=== PATIENT | female | born 1940 | race Caucasian/White ===

== ENCOUNTER 2017-08-07 19:04 | Observation (INO) | payer MEDICARE ==
[2017-08-07] MEDS ORDERED: Aspirin Low Dose CHEW TAB* 81 MG PO ONE (19:41)
[2017-08-07] MEDS ORDERED: NS 0.9% 1000 ML* 1,000 ML IV ONE (19:41)
--- NOTE | 2017-08-07 20:12 | RAD ---
INDICATION: Palpitations. COMPARISON: Comparison is made with a prior study from August 28, 2014. TECHNIQUE: A portable view of the chest was obtained. FINDINGS: Cardiac and mediastinal contours appear to be within normal limits. The lungs are slightly hyperinflated and clear. No pleural effusion is seen. IMPRESSION: NO EVIDENCE FOR ACUTE DISEASE.
[2017-08-07] MEDS: Metoprolol Tartrate IV* 1 MG/ML 5 ML VIAL IV ONE ×2 (20:15→20:32)
[2017-08-07 20:57] LABS: Hematocrit 37 % (35-47); Hemoglobin 12.6 g/dl (12.0-16.0); Mean Corpuscular HGB Conc 34 g/dl (31-36); Mean Corpuscular Hemoglobin 31 pg (27-31); Mean Corpuscular Volume 93 fL (80-97); Mean Platelet Volume 7 um3 (7.4-10.4); Red Blood Count 4.02 10^6/ul (4.0-5.4); Red Cell Distribution Width 14 % (10.5-15); White Blood Count 6.9 10^3/ul (3.5-10.8)
[2017-08-07 21:12] LABS: ALT 17 U/L (7-52); Albumin 3.9 g/dL (3.2-5.2); Alkaline Phosphatase 46 U/L (34-104); BUN/Creatinine Ratio 28.8 (8-20); Blood Urea Nitrogen 23 mg/dL (6-24); CO2 Carbon Dioxide 28 mmol/L (22-32); Calcium 9.2 mg/dL (8.6-10.3); Chloride 106 mmol/L (101-111); EGFR Non-African American 69.2 (>60); Globulin 2.8 g/dL (2-4); Glucose 89 mg/dL (70-100); Sodium 138 mmol/L (133-145); Total Protein 6.7 g/dL (6.4-8.9)
[2017-08-07 21:13] LABS: Troponin I 0.01 ng/mL (<0.04)
[2017-08-07] MEDS ORDERED: Acetaminophen TAB* 325 MG PO PRN (21:30)
[2017-08-07 21:31] LABS: Anion Gap 4 mmol/L (2-11)
[2017-08-07] MEDS ORDERED: CMCS: Melatonin (NF) 3 MG TAB PO PRN (21:31)
[2017-08-07] MEDS ORDERED: Ondansetron INJ* 2 MG/ML VIAL IV PRN (21:31)
[2017-08-07 21:44] LABS: TSH (Thyroid Stimulating Horm) 3.88 mcIU/mL (0.34-5.60)
[2017-08-07] MEDS ORDERED: NS 0.9% 1000 ML* 1,000 ML IV SCH ×2 (21:45→22:30)
[2017-08-07] MEDS ORDERED: Ibuprofen TAB* 400 MG PO PRN (22:44)
[2017-08-07] MEDS ORDERED: tiZANidine TAB* 2 MG PO PRN (22:44)
[2017-08-07] MEDS ORDERED: Zolpidem TAB* 5 MG PO PRN (22:44)
[2017-08-07] MEDS ORDERED: Enoxaparin(*) 40 MG/0.4 ML SYR SUBCUT SCH (23:00)
[2017-08-07 23:58] LABS: Urine Bacteria Absent (Absent); Urine Bilirubin Negative (Negative); Urine Glucose Negative (Negative); Urine Nitrite Negative (Negative)
[2017-08-07] MEDS: Atorvastatin* 10 MG TAB PO SCH (23:59)
[2017-08-08] MEDS: Atorvastatin* 10 MG TAB PO SCH (00:09)
[2017-08-08] MEDS: Cyanocobalamin TAB* 500 MCG PO SCH ×2 (00:15→08:29)
--- NOTE | 2017-08-08 00:15 | HP ---
CC: Dr. Avilez; Dr. Cevallos * HISTORY AND PHYSICAL: DATE OF ADMISSION: 08/07/17 PRIMARY CARE PHYSICIAN: Dr. Eloina Avilez. STAIR BUILDER: Dr. Cevallos. ATTENDING PHYSICIAN: Dennis Velazco MD * (DICTATED BY HEATHER NUNN NP) CHIEF COMPLAINT: Palpitations. HISTORY OF PRESENT ILLNESS: This patient is a 77-year-old female with past medical history significant for coronary artery disease; SVT, status post ablation; hyperlipidemia; hypothyroidism, who presents to the emergency room today with complaint of palpitations. The patient spent the weekend in [facility] with her children. She took the [employer] bus back this afternoon and then went urgently to the bathroom where she had an episode of watery diarrhea and subsequently felt very weak. The patient states yesterday, she also felt very weak and too tired to eat. She had difficulty sleeping the night prior and took an Ambien. After the episode of watery diarrhea this afternoon, she went home and had a toast, egg, and some tea. While she was at home, she could feel her heart was racing. She denied any chest pain or shortness of breath. She felt palpitations. She took her vital signs and stated that her blood pressure was 103/70 and her heart rate was 133. She took it shortly thereafter and that came down to 121. She phoned her die drawing checker office and was directed by the die drawing checker store loss prevention manager to come to the emergency room for further evaluation. In the emergency room, initially in triage, her heart rate was 132. When she was placed on the monitor, her heart rate came down and it was in the 70s. Currently, she is in sinus arrhythmia. She was given a liter of fluid and hospitalists were asked to evaluate this patient for admission. PAST MEDICAL HISTORY: Rheumatoid arthritis, coronary artery disease, SVT ablation, hypothyroidism, hyperlipidemia, GERD, anxiety, and reactive airway disease. PAST SURGICAL HISTORY: Hysterectomy, cataract surgery, right knee arthroscopy, open reduction and internal fixation of her left hip in August 2014. HOME MEDICATIONS: Include: 1. Zantac 150 mg oral daily. 2. Ambien half to one 5 to 10 mg oral at bedtime as needed. 3. Magnesium 500 mg oral daily. 4. Advil 400 mg oral daily as needed. 5. Vitamin B12 500 mcg oral daily. 6. Extra-Strength Tylenol 1 to 2 tablets oral every 4 hours as needed. 7. Tizanidine 4 mg oral daily as needed. 8. [place]-3 fatty acids 1 tablet oral daily. 9. Co-enzyme Q10 one tablet oral daily. 10. Vitamin D two tablets oral daily. 11. Doxycycline 40 mg oral daily. 12. Fluticasone 1 spray both nares daily. 13. Singulair 1 tablet 10 mg oral daily. 14. Levocetirizine 1 tablet oral daily. 15. Leucovorin tablet, 1 tablet oral weekly. 16. Enbrel 50 mg subcu weekly. 17. Zoloft 25 mg oral daily. 18. Methotrexate 5, 2.5 mg tablets oral weekly. 19. Potassium chloride 20 mEq oral daily. 20. Synthroid 50 mcg oral daily. 21. Folic acid 1 mg oral daily. 22. Lipitor 10 mg oral at bedtime. 23. Aspirin 81 mg oral daily. ALLERGIES: PENICILLIN, SULFA, BACTRIM, CONTRAST DYE, BEE STINGS. FAMILY HISTORY: Reviewed and noncontributory. SOCIAL HISTORY: The patient denies any tobacco, alcohol, or drug use. She is retired. Her , George Anaya, would be the surrogate decision maker in the event the patient cannot make decisions for herself. They have 2 children. REVIEW OF SYSTEMS: I performed a 14-point review of systems. All the pertinent positives and negatives are mentioned in the history of present illness. The remaining review of systems is negative. PHYSICAL EXAMINATION GENERAL APPEARANCE: The patient is alert, pleasant, and appeared to be in no apparent distress. VITAL SIGNS: Temperature 97.9, heart rate 82, respiratory rate 20, oxygen saturation 96% on room air, blood pressure 118/59. HEENT: Normocephalic/atraumatic. Pupils equal, round, and reactive to light. Extraocular movements were intact. NECK: Neck was supple. There is no lymphadenopathy noted. RESPIRATORY: There was no accessory muscle use. Lungs are clear to auscultation. CARDIAC: S1, S2 were crisp. There were no murmurs, rubs, or gallops heard. Rhythm was irregular. ABDOMEN: Soft, nontender, nondistended. There are bowel sounds x4. MUSCULOSKELETAL: There is no clubbing or cyanosis noted. The patient exhibited equal strength in all extremities. NEURO: Cranial nerves II through XII intact. The patient moves all extremities. Lower extremities were intact to light touch. PSYCH: The patient is alert and oriented x3. SKIN: There were no rashes or abnormalities seen. LABORATORY DATA: Sodium 138, potassium 4.2, chloride 106, CO2 28, BUN 23, creatinine 0.8, glucose 89, lactic acid 1.1. Bilirubin 0.3, AST 20, ALT 17. Troponin 0.01. BNP 85. Albumin 3.9. TSH 3.88, free T4 6.5. White blood cell count 6.9, hemoglobin 12.6, hematocrit 37, platelet count 637. INR 0.94. IMPRESSION AND PLAN: This is a 77-year-old female with past medical history significant of supraventricular tachycardia and coronary artery disease as well as hyperlipidemia, gastroesophageal reflux disease, and anxiety, who presents to the emergency room with episode of palpitations and elevated heart rate that were self- limiting. The patient will be placed on observation for palpitations : 1. Palpitations, possible supraventricular tachycardia. The patient will be placed on telemetry overnight and will have a repeat troponin in the morning. Her beta yue will continue. Magnesium is being added on emergency room labs to ensure that it is normal. Her daily potassium and magnesium supplements will continue. If the patient has any episode of arrhythmia or supraventricular tachycardia, overnight medications can be adjusted and cardiology can be consulted. 2. Hypothyroidism. TSH and free T3 and T4 are within normal limits. Continue Synthroid. 3. Dehydration. The patient was given a liter of fluid in the ER and will be given an additional liter; this is likely the cause of her intermittent palpitations. 4. Hyperlipidemia. Lipitor will continue. 5. Fluids, electrolytes, nutrition. The patient will have a heart healthy diet with no caffeine. 6. DVT prophylaxis. She is at moderate risk. We will give Lovenox. 7. Codes status is full. TIME SPENT: Time for this admission was 50 minutes, and 25 minutes was spent with the patient discussing medications, past medical history, event leading up to her arrival in the emergency room. Reviewed by HEATHER NUNN NP 08/08/2017 1800 [id number]/CPS #: [id number] WILDA
--- NOTE | 2017-08-08 02:36 | ED ---
Shawna Alvarez Nilda, scribed for Freddie Smith MD on 08/07/17 at 1942 . HPI Cardiac - HPI Summary HPI Summary: This patient is a 77 year old F presenting to [facility] accompanied by with a chief complaint of palpitations s/p returning from [facility] trip earlier today. The patient rates the pain 0/10 in severity. Symptoms aggravated by nothing and alleviated by Tylenol. Patient reports diarrhea, elevated heartbeat, elevated blood pressure, and SOB. Patient denies CP, headache, back pain, and nausea. PMHx includes SVT. - History of Current Complaint Chief Complaint: EDChestPainROMI Stated Complaint: PALPITATIONS/HIGH BLOOD PRESSURE Time Seen by Provider: 08/07/17 19:27 Hx Obtained From: Patient Onset/Duration: Started Hours Ago, Still Present Timing: Constant Current Severity: Mild Pain Intensity: 0 Pain Scale Used: 0-10 Numeric Character: Fast, Irregular Aggravating Factor(s): Nothing Alleviating Factor(s): OTC Meds - tylenol Associated Signs and Symptoms: Positive: Other: - diarrhea, tachycardia, elevated blood pressure, and SOB. Patient denies CP, headache, back pain, and nausea. - Allergy/Home Medications Allergies/Adverse Reactions: Allergies Allergy/AdvReac Type Severity Reaction Status Date / Time Penicillins Allergy Unknown Rash Verified 08/07/17 19:15 Sulfa Drugs Allergy Unknown Rash Verified 08/07/17 19:15 Sulfamethoxazole Allergy Unknown Rash Verified 08/07/17 19:15 w/Trimethoprim [From Bactrim] Iodinated Contrast Media AdvReac Unknown Unknown Verified 08/07/17 19:15 [CONTRAST DYE] Reaction Details bee sting Allergy Severe Anaphylatic Uncoded 08/07/17 19:15 Shock PMH/Surg Hx/FS Hx/Imm Hx Endocrine/Hematology History: Reports: Hx Thyroid Disease, Hx Anemia - MILDLY, ON FOLIC ACID Denies: Hx Diabetes Cardiovascular History: Reports: 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, Hx Hypercholesterolemia, Hx Hypertension, Hx Rheumatic Fever - A CHILD, Hx Valvular Heart Disease - MVR, Other Cardiovascular Problems/Disorders - SVT with ablation Denies: Hx Angina, Hx Myocardial Infarction, Hx Pacemaker/ICD Respiratory History: Reports: Hx Seasonal Allergies, Hx Sleep Apnea - USES MOUTH PIECE, Other Respiratory Problems/Disorders - enviromental allergies Denies: Hx Asthma, Hx Chronic Obstructive Pulmonary Disease (COPD) GI History: Reports: Hx Gastroesophageal Reflux Disease, Hx Hiatal Hernia, Hx Irritable Bowel - AT TIMES Denies: Hx Ulcer Comment Only: Other GI Disorders - INSULIN RESISTANT History: Reports: Hx Kidney Stones Musculoskeletal History: Reports: Hx Arthritis - rheumatoid arthritis, Hx Back Problems, Hx Orthopedic Injury - femoral neck fx Aug 2014, Hx Osteoporosis, Other Musculoskeletal History - RA, osteoarthritis Sensory History: Reports: Hx Contacts or Glasses, Hx Hearing Problem Denies: Hx Hearing Aid Opthamlomology History: Reports: Hx Contacts or Glasses Neurological History: Denies: Hx Headaches Psychiatric History: Reports: Hx Anxiety Denies: Hx Panic Disorder - Cancer History Hx Chemotherapy: No Hx Radiation Therapy: No - Surgical History Surgery Procedure, Year, and Place: RT HIP PINNING AUG 2014 Hx Anesthesia Reactions: No Infectious Disease History: No Infectious Disease History: Denies: Hx Clostridium Difficile, Hx Hepatitis, Hx Human Immunodeficiency Virus (HIV), Hx of Known/Suspected MRSA, Hx Shingles, Hx Tuberculosis, Hx Known/ Suspected VRE, Hx Known/Suspected VRSA, History Other Infectious Disease, Traveled Outside the [place] in Last 30 Days - Family History Known Family History: Positive: Hypertension - Social History Alcohol Use: None Substance Use Type: Reports: None Smoking Status (MU): Never Smoked Tobacco Have You Smoked in the Last Year: No Review of Systems Positive: Palpitations, Other - fast heartbeat, elevated blood pressure. Negative: Chest Pain Positive: Shortness Of Breath Positive: Diarrhea. Negative: Nausea Positive: Other - negative back pain Negative: Headache All Other Systems Reviewed And Are Negative: Yes Physical Exam - Summary Physical Exam Summary: The patient is well-nourished in no acute distress and in no acute pain. The skin is warm and dry and skin color reflects adequate perfusion. HEENT: The head is normocephalic and atraumatic. The pupils are equal and reactive. The conjunctivae are clear and without drainage. Nares are patent and without drainage. Mouth reveals moist mucous membranes and the throat is without erythema and exudate. The external ears are intact. The ear canals are patent and without drainage. The tympanic membranes are intact. Neck is supple with full range of motion and non-tender. There are no carotid bruits. There is no neck vein distension. Respiratory: Chest is non-tender. Lungs are clear to auscultation and breath sounds are symmetrical and equal. Cardiovascular: Heartbeat is irregularly irregular with normal rate. There is no murmur or rub auscultated. Upon re-evaluation heartrate was rapid shortly and returned back to normal. There is no peripheral edema and pulses are symmetrical and equal. Abdomen: The abdomen is soft and non-tender. There are normal bowel sounds heard in all four quadrants and there is no organomegaly palpated. Musculoskeletal: There is no back pain noted. Extremities are non-tender with full range of motion. There is good capillary refill. There is no peripheral edema or calf tenderness elicited. Neurological: Patient is alert and oriented to person, place and time. The patient has symmetrical motor strength in all four extremities. Cranial nerves are grossly intact. Deep tendon reflexes are symmetrical and equal in all four extremities. Psychiatric: The patient has an appropriate affect and does not exhibit any anxiety or depression. Triage Information Reviewed: Yes Vital Signs On Initial Exam: Initial Vitals Temp Pulse Resp BP Pulse Ox 97.9 F 132 20 137/77 100 08/07/17 19:11 08/07/17 19:11 08/07/17 19:11 08/07/17 19:11 08/07/17 19:11 Vital Signs Reviewed: Yes Diagnostics - Vital Signs Vital Signs Temp Pulse Resp BP Pulse Ox 08/07/17 19:11 97.9 F 132 20 137/77 100 - Laboratory Lab Results: Lab Results 08/07/17 08/07/17 08/07/17 Range/Units 20:05 20:45 20:45 WBC 6.9 (3.5-10.8) 10^3/ul RBC 4.02 (4.0-5.4) 10^6/ul Hgb 12.6 (12.0-16.0) g/dl Hct 37 (35-47) % MCV 93 (80-97) fL MCH 31 (27-31) pg MCHC 34 (31-36) g/dl RDW 14 (10.5-15) % Plt Count 637 H (150-450) 10^3/ul MPV 7 L (7.4-10.4) um3 Neut % (Auto) 56.8 (38-83) % Lymph % (Auto) 20.3 L (25-47) % Mclean % (Auto) 17.4 H (1-9) % Eos % (Auto) 4.6 (0-6) % Baso % (Auto) 0.9 (0-2) % Absolute Neuts (auto) 3.9 (1.5-7.7) 10^3/ul Absolute Lymphs (auto) 1.4 (1.0-4.8) 10^3/ul Absolute Monos (auto) 1.2 H (0-0.8) 10^3/ul Absolute Eos (auto) 0.3 (0-0.6) 10^3/ul Absolute Basos (auto) 0.1 (0-0.2) 10^3/ul Absolute Nucleated RBC 0 10^3/ul Nucleated RBC % 0 INR (Anticoag Therapy) (0.89-1.11) Sodium (133-145) mmol/L Potassium Chloride (101-111) mmol/L Carbon Dioxide (22-32) mmol/L Anion Gap (2-11) mmol/L BUN (6-24) mg/dL Creatinine (0.51-0.95) mg/dL Est GFR ( Amer) (>60) Est GFR (Non-Af Amer) (>60) BUN/Creatinine Ratio (8-20) Glucose (70-100) mg/dL Lactic Acid (0.5-2.0) mmol/L Calcium (8.6-10.3) mg/dL Total Bilirubin (0.2-1.0) mg/dL AST ALT (7-52) U/L Alkaline Phosphatase (34-104) U/L Troponin I (<0.04) ng/mL B-Natriuretic Peptide 85 ( - 100) pg/mL Total Protein (6.4-8.9) g/dL Albumin (3.2-5.2) g/dL Globulin (2-4) g/dL Albumin/Globulin Ratio (1-3) TSH (0.34-5.60) mcIU/mL Thyroxine (T4) (6.09-12.23) mcg/mL Urine Color Straw Urine Appearance Clear Urine pH 5.0 (5-9) Ur Specific Hayden 1.010 (1.010-1.030) Urine Protein Negative (Negative) Urine Ketones Negative (Negative) Urine Blood 1+ H (Negative) Urine Nitrate Negative (Negative) Urine Bilirubin Negative (Negative) Urine Urobilinogen Negative (Negative) Ur Leukocyte Esterase Negative (Negative) Urine WBC (Auto) Trace(0-5/hpf) (Absent) Urine RBC (Auto) Trace(0-2/hpf) (Absent) Urine Bacteria Absent (Absent) Urine Glucose Negative (Negative) 08/07/17 08/07/17 08/07/17 Range/Units 20:45 20:45 20:45 WBC (3.5-10.8) 10^3/ul RBC (4.0-5.4) 10^6/ul Hgb (12.0-16.0) g/dl Hct (35-47) % MCV (80-97) fL MCH (27-31) pg MCHC (31-36) g/dl RDW (10.5-15) % Plt Count (150-450) 10^3/ul MPV (7.4-10.4) um3 Neut % (Auto) (38-83) % Lymph % (Auto) (25-47) % Mclean % (Auto) (1-9) % Eos % (Auto) (0-6) % Baso % (Auto) (0-2) % Absolute Neuts (auto) (1.5-7.7) 10^3/ul Absolute Lymphs (auto) (1.0-4.8) 10^3/ul Absolute Monos (auto) (0-0.8) 10^3/ul Absolute Eos (auto) (0-0.6) 10^3/ul Absolute Basos (auto) (0-0.2) 10^3/ul Absolute Nucleated RBC 10^3/ul Nucleated RBC % INR (Anticoag Therapy) 0.94 (0.89-1.11) Sodium 138 (133-145) mmol/L Potassium TNP Chloride 106 (101-111) mmol/L Carbon Dioxide 28 (22-32) mmol/L Anion Gap 4 (2-11) mmol/L BUN 23 (6-24) mg/dL Creatinine 0.80 (0.51-0.95) mg/dL Est GFR ( Amer) 89.0 (>60) Est GFR (Non-Af Amer) 69.2 (>60) BUN/Creatinine Ratio 28.8 H (8-20) Glucose 89 (70-100) mg/dL Lactic Acid 1.1 (0.5-2.0) mmol/L Calcium 9.2 (8.6-10.3) mg/dL Total Bilirubin 0.30 (0.2-1.0) mg/dL AST TNP ALT 17 (7-52) U/L Alkaline Phosphatase 46 (34-104) U/L Troponin I 0.01 (<0.04) ng/mL B-Natriuretic Peptide ( - 100) pg/mL Total Protein 6.7 (6.4-8.9) g/dL Albumin 3.9 (3.2-5.2) g/dL Globulin 2.8 (2-4) g/dL Albumin/Globulin Ratio 1.4 (1-3) TSH 3.88 (0.34-5.60) mcIU/mL Thyroxine (T4) 6.50 (6.09-12.23) mcg/mL Urine Color Urine Appearance Urine pH (5-9) Ur Specific Hayden (1.010-1.030) Urine Protein (Negative) Urine Ketones (Negative) Urine Blood (Negative) Urine Nitrate (Negative) Urine Bilirubin (Negative) Urine Urobilinogen (Negative) Ur Leukocyte Esterase (Negative) Urine WBC (Auto) (Absent) Urine RBC (Auto) (Absent) Urine Bacteria (Absent) Urine Glucose (Negative) Result Diagrams: 08/07/17 20:45 08/07/17 21:41 Diagnostic Studies Comment: Lab Results. 08/07/171103/1711Range/Units. 20:0520:4520:45. WBC 6.9 (3.5-10.8) 10^3/ul. RBC 4.02 (4.0-5.4) 10^6/ul. Hgb 12.6 (12.0-16.0) g/dl. Hct 37 (35-47) %. MCV 93 (80-97) fL. MCH 31 (27 -31) pg. MCHC 34 (31-36) g/dl. RDW 14 (10.5-15) %. Plt Count 637 H (150- 450) 10^3/ul. MPV 7 L (7.4-10.4) um3. Neut % (Auto) 56.8 (38-83) %. Lymph % (Auto) 20.3 L (25-47) %. Mclean % (Auto) 17.4 H (1-9) %. Eos % (Auto) 4.6 (0 -6) %. Baso % (Auto) 0.9 (0-2) %. Absolute Neuts (auto) 3.9 (1.5-7.7) 10^3/ ul. Absolute Lymphs (auto) 1.4 (1.0-4.8) 10^3/ul. Absolute Monos (auto) 1.2 H (0-0.8) 10^3/ul. Absolute Eos (auto) 0.3 (0-0.6) 10^3/ul. Absolute Basos ( auto) 0.1 (0-0.2) 10^3/ul. Absolute Nucleated RBC 0 10^3/ul. Nucleated RBC % 0. INR (Anticoag Therapy) (0.89-1.11). Sodium (133-145) mmol/L. Potassium. Chloride (101-111) mmol/L. Carbon Dioxide (22-32) mmol/L. Anion Gap (2-11) mmol/L. BUN (6-24) mg/dL. Creatinine (0.51-0.95) mg/dL. Est GFR ( Amer) (>60). Est GFR (Non-Af Amer) (>60). BUN/Creatinine Ratio (8-20). Glucose (70-100) mg/dL. Lactic Acid (0.5-2.0) mmol/L. Calcium (8.6-10.3) mg /dL. Total Bilirubin (0.2-1.0) mg/dL. AST. ALT (7-52) U/L. Alkaline Phosphatase (34-104) U/L. Troponin I (<0.04) ng/mL. B-Natriuretic Peptide 85 ( - 100) pg/mL. Total Protein (6.4-8.9) g/dL. Albumin (3.2-5.2) g/dL. Globulin (2-4) g/dL. Albumin/Globulin Ratio (1-3). TSH (0.34-5.60) mcIU/mL. Thyroxine (T4) (6.09-12.23) mcg/mL. Urine Color Straw. Urine Appearance Clear. Urine pH 5.0 (5-9). Ur Specific Hayden 1.010 (1.010-1.030). Urine Protein Negative (Negative). Urine Ketones Negative (Negative). Urine Blood 1 + H (Negative). Urine Nitrate Negative (Negative). Urine Bilirubin Negative ( Negative). Urine Urobilinogen Negative (Negative). Ur Leukocyte Esterase Negative (Negative). Urine WBC (Auto) Trace(0-5/hpf) (Absent). Urine RBC (Auto ) Trace(0-2/hpf) (Absent). Urine Bacteria Absent (Absent). Urine Glucose Negative (Negative). 08/07/171103/1711Range/Units. 20:4520:4520:45. WBC (3.5-10.8) 10^3/ul. RBC (4.0-5.4) 10^6/ul. Hgb (12.0-16.0) g/dl. Hct ( 35-47) %. MCV (80-97) fL. MCH (27-31) pg. MCHC (31-36) g/dl. RDW (10.5- 15) %. Plt Count (150-450) 10^3/ul. MPV (7.4-10.4) um3. Neut % (Auto) (38- 83) %. Lymph % (Auto) (25-47) %. Mclean % (Auto) (1-9) %. Eos % (Auto) (0-6 ) %. Baso % (Auto) (0-2) %. Absolute Neuts (auto) (1.5-7.7) 10^3/ul. Absolute Lymphs (auto) (1.0-4.8) 10^3/ul. Absolute Monos (auto) (0-0.8) 10^3/ ul. Absolute Eos (auto) (0-0.6) 10^3/ul. Absolute Basos (auto) (0-0.2) 10^3/ ul. Absolute Nucleated RBC 10^3/ul. Nucleated RBC %. INR (Anticoag Therapy) 0.94 (0.89-1.11). Sodium 138 (133-145) mmol/L. Potassium TNP. Chloride 106 ( 101-111) mmol/L. Carbon Dioxide 28 (22-32) mmol/L. Anion Gap 4 (2-11) mmol/ L. BUN 23 (6-24) mg/dL. Creatinine 0.80 (0.51-0.95) mg/dL. Est GFR ( Amer) 89.0 (>60). Est GFR (Non-Af Amer) 69.2 (>60). BUN/Creatinine Ratio 28.8 H (8-20). Glucose 89 (70-100) mg/dL. Lactic Acid 1.1 (0.5-2.0) mmol/L. Calcium 9.2 (8.6-10.3) mg/dL. Total Bilirubin 0.30 (0.2-1.0) mg/dL. AST TNP. ALT 17 (7-52) U/L. Alkaline Phosphatase 46 (34-104) U/L. Troponin I 0.01 (<0.04) ng/mL. B-Natriuretic Peptide( - 100) pg/mL. Total Protein 6.7 (6.4-8.9) g/dL. Albumin 3.9 (3.2-5.2) g/dL. Globulin 2.8 (2-4) g/dL. Albumin/Globulin Ratio 1.4 (1-3). TSH 3.88 (0.34-5.60) mcIU/mL. Thyroxine (T4) 6.50 (6.09-12.23) mcg/mL. Urine Color. Urine Appearance. Urine pH (5-9). Ur Specific Hayden (1.010-1.030). Urine Protein (Negative). Urine Ketones (Negative). Urine Blood (Negative). Urine Nitrate (Negative). Urine Bilirubin (Negative). Urine Urobilinogen (Negative). Ur Leukocyte Esterase (Negative). Urine WBC (Auto) (Absent). Urine RBC (Auto) (Absent). Urine Bacteria (Absent). Urine Glucose (Negative) Lab Statement: Any lab studies that have been ordered have been reviewed, and results considered in the medical decision making process. - Radiology CXR Radiology Interpretation Completed By: Radiologist - JACINTA. ED physician has reviewed this report and agrees. - EKG 1917 Cardiac Rate: NL - 91 bpm EKG Rhythm: Sinus Rhythm ST Segment: Non-Specific Ectopy: PACs - frequent in [facility] EKG Interpretation: normal axis 2051 Cardiac Rate: NL - 80 bpm EKG Rhythm: Sinus Rhythm ST Segment: Normal Ectopy: PACs - frequent EKG Interpretation: occasional P wave without QRS Re-Evaluation - Re-Evaluation First Eval Re-Evaluation Time: 21:17 Comment: Patient feels better but is still having arrhythmia. Disposition - Course Course Of Treatment: Pt with tachycardia, hx of SVT prior to getting back to room. In room, NSR with freq PACs, bigeminy pattern. No QRS after some P waves with nl UT intervals otherwise. Had ablation prior. Neg trop. Admit for further. - Diagnoses Provider Diagnoses: Palpitations, Dehydration, frequent PACs - Physician Notifications Discussed Care Of Patient With: Dennis Velazco - hospitalist Time Discussed With Above Provider: 21:27 Instructed by Provider To: Admit As Inpatient Discharge - Discharge Plan Condition: Good Disposition: ADMITTED TO [facility] The documentation as recorded by the Shawna brito Nilda accurately reflects the service I personally performed and the decisions made by me, Freddie Smith MD.
[2017-08-08] MEDS ORDERED: Omeprazole CAP* 20 MG PO SCH (06:00)
[2017-08-08] MEDS ORDERED: Levothyroxine TAB* 50 MCG TAB PO SCH (06:00)
[2017-08-08 07:18] VITALS: BP 112/51
[2017-08-08] MEDS ORDERED: Potassium Chlor TAB* 20 MEQ TAB.ER PO SCH (08:30)
[2017-08-08] MEDS ORDERED: Famotidine TAB* 20 MG PO SCH (09:00)
[2017-08-08] MEDS ORDERED: Fluticasone NASAL SPRAY 50MCG* 16 gm SPRAY BTL BOTH NARES SCH (09:00)
[2017-08-08] MEDS ORDERED: Sertraline* 25 MG TAB PO SCH (09:00)
[2017-08-08] MEDS ORDERED: Magnesium Oxide TAB* 400 MG PO SCH (09:00)
[2017-08-08] MEDS ORDERED: Cholecalciferol TAB* 1000 UNITS PO SCH (09:00)
[2017-08-08] MEDS ORDERED: Cetirizine* 10 MG TAB PO SCH (09:00)
[2017-08-08] MEDS ORDERED: Aspirin EC Low Dose* 81 MG TAB.EC PO SCH (09:00)
[2017-08-08] MEDS ORDERED: Montelukast Sodium TAB* 10 MG PO SCH (09:00)
[2017-08-08] MEDS ORDERED: Metoprolol Succinate XL TAB* 25 MG PO SCH (09:00)
[2017-08-08] MEDS ORDERED: Folic Acid TAB* 1 MG PO SCH (09:00)
--- NOTE | 2017-08-08 09:12 | DCNOTE ---
Subjective Date of Service: 08/08/17 Interval History: No more palpitations. No chest pain, cough, SOB, dizziness, weakness. No new c /o, anxious to go home. Objective Active Medications: Acetaminophen (Tylenol Tab*) 650 mg PO Q6H PRN PRN Reason: FEVER/PAIN Last Admin: 08/07/17 23:58 Dose: 650 mg Aspirin (Aspirin Ec Low Dose*) 81 mg PO DAILY [facility] Last Admin: 08/08/17 08:27 Dose: 81 mg Atorvastatin Calcium (Lipitor*) 10 mg PO BEDTIME [facility] Last Admin: 08/08/17 00:09 Dose: 10 mg Cetirizine HCl (Zyrtec*) 10 mg PO DAILY [facility] Last Admin: 08/08/17 08:28 Dose: Not Given Cholecalciferol (Vitamin D Tab*) 2,000 units PO DAILY [facility] Last Admin: 08/08/17 08:28 Dose: 2,000 units Cyanocobalamin (Vitamin B12 Tab*) 500 mcg PO DAILY [facility] Last Admin: 08/08/17 08:29 Dose: 500 mcg Enoxaparin Sodium (Lovenox(*)) 40 mg SUBCUT BEDTIME [facility] Last Admin: 08/07/17 23:58 Dose: 40 mg Famotidine (Pepcid Tab*) 20 mg PO DAILY [facility] Last Admin: 08/08/17 08:29 Dose: Not Given Fluticasone Propionate (Flonase Nasal [place] 50mcg*) 1 spray BOTH NARES DAILY [facility] Last Admin: 08/08/17 08:30 Dose: Not Given Folic Acid (Folvite Tab*) 1 mg PO DAILY [facility] Last Admin: 08/08/17 08:30 Dose: 1 mg Ibuprofen (Motrin Tab*) 400 mg PO DAILY PRN PRN Reason: PAIN Levothyroxine Sodium (Synthroid Tab*) 50 mcg PO DAILY@0600 [facility] Last Admin: 08/08/17 05:05 Dose: 50 mcg Magnesium Oxide (Magox 400 Tab*) 400 mg PO DAILY [facility] Last Admin: 08/08/17 08:30 Dose: 400 mg Melatonin (Melatonin (Nf)) 3 mg PO BEDTIME PRN; Protocol PRN Reason: Sleep Metoprolol Succinate (Toprol Xl Tab*) 12.5 mg PO DAILY [facility] Last Admin: 08/08/17 08:31 Dose: 12.5 mg Montelukast Sodium (Singulair Tab*) 10 mg PO DAILY [facility] Last Admin: 08/08/17 08:32 Dose: Not Given Omeprazole (Prilosec Cap*) 20 mg PO DAILY@0600 [facility] Last Admin: 08/08/17 05:05 Dose: 20 mg Ondansetron HCl (Zofran Inj*) 4 mg IV Q6H PRN PRN Reason: NAUSEA Potassium Chloride (Klor Con Er Tab*) 20 meq PO DAILY WITH MEAL [facility] Last Admin: 08/08/17 08:27 Dose: 20 meq Sertraline HCl (Zoloft*) 25 mg PO DAILY [facility] Last Admin: 08/08/17 08:32 Dose: 25 mg Tizanidine HCl (Zanaflex Tab*) 4 mg PO DAILY PRN PRN Reason: SPASMS Zolpidem Tartrate (Ambien Tab*) 5 mg PO BEDTIME PRN PRN Reason: SLEEP Vital Signs 08/07/17 08/07/17 08/07/17 21:49 22:00 22:41 Temperature Pulse Rate 91 94 94 Respiratory Rate Blood Pressure 110/62 127/50 133/49 (mmHg) O2 Sat by Pulse 95 96 96 Oximetry 08/08/17 08/08/17 08/08/17 00:17 03:22 07:14 Temperature 97.8 F 97.5 F 97.8 F Pulse Rate 87 70 Respiratory 22 20 16 Rate Blood Pressure 118/58 104/65 112/51 (mmHg) O2 Sat by Pulse 100 98 98 Oximetry Oxygen Devices in Use Now: None Appearance: Alert, sitting on thge edge of her bed. In good spirits. Looks comfortable. Eyes: No Scleral Icterus Respiratory: Symmetrical Chest Expansion and Respiratory Effort, Clear to Auscultation, Clear to Percussion Cardiovascular: RRR Extremities: No Edema, No Clubbing, Cyanosis, - Skin: No Rash or Ulcers, No Nodules or Sclerosis, - Neurological: Alert and Oriented x 3, NL Sensation Result Diagrams: 08/07/17 20:45 08/07/17 21:41 Additional Lab and Data: Lab Results 08/07/17 08/07/17 08/07/17 Range/Units 20:05 20:45 20:45 WBC 6.9 (3.5-10.8) 10^3/ul RBC 4.02 (4.0-5.4) 10^6/ul Hgb 12.6 (12.0-16.0) g/dl Hct 37 (35-47) % MCV 93 (80-97) fL MCH 31 (27-31) pg MCHC 34 (31-36) g/dl RDW 14 (10.5-15) % Plt Count 637 H (150-450) 10^3/ul MPV 7 L (7.4-10.4) um3 Neut % (Auto) 56.8 (38-83) % Lymph % (Auto) 20.3 L (25-47) % Marion % (Auto) 17.4 H (1-9) % Eos % (Auto) 4.6 (0-6) % Baso % (Auto) 0.9 (0-2) % Absolute Neuts (auto) 3.9 (1.5-7.7) 10^3/ul Absolute Lymphs (auto) 1.4 (1.0-4.8) 10^3/ul Absolute Monos (auto) 1.2 H (0-0.8) 10^3/ul Absolute Eos (auto) 0.3 (0-0.6) 10^3/ul Absolute Basos (auto) 0.1 (0-0.2) 10^3/ul Absolute Nucleated RBC 0 10^3/ul Nucleated RBC % 0 INR (Anticoag Therapy) (0.89-1.11) Sodium (133-145) mmol/L Potassium Chloride (101-111) mmol/L Carbon Dioxide (22-32) mmol/L Anion Gap (2-11) mmol/L BUN (6-24) mg/dL Creatinine (0.51-0.95) mg/dL Est GFR ( Amer) (>60) Est GFR (Non-Af Amer) (>60) BUN/Creatinine Ratio (8-20) Glucose (70-100) mg/dL Lactic Acid (0.5-2.0) mmol/L Calcium (8.6-10.3) mg/dL Total Bilirubin (0.2-1.0) mg/dL AST ALT (7-52) U/L Alkaline Phosphatase (34-104) U/L Troponin I (<0.04) ng/mL B-Natriuretic Peptide 85 ( - 100) pg/mL Total Protein (6.4-8.9) g/dL Albumin (3.2-5.2) g/dL Globulin (2-4) g/dL Albumin/Globulin Ratio (1-3) TSH (0.34-5.60) mcIU/mL Thyroxine (T4) (6.09-12.23) mcg/mL Urine Color Straw Urine Appearance Clear Urine pH 5.0 (5-9) Ur Specific [place] 1.010 (1.010-1.030) Urine Protein Negative (Negative) Urine Ketones Negative (Negative) Urine Blood 1+ H (Negative) Urine Nitrate Negative (Negative) Urine Bilirubin Negative (Negative) Urine Urobilinogen Negative (Negative) Ur Leukocyte Esterase Negative (Negative) Urine WBC (Auto) Trace(0-5/hpf) (Absent) Urine RBC (Auto) Trace(0-2/hpf) (Absent) Urine Bacteria Absent (Absent) Urine Glucose Negative (Negative) 08/07/17 08/07/17 08/07/17 Range/Units 20:45 20:45 20:45 WBC (3.5-10.8) 10^3/ul RBC (4.0-5.4) 10^6/ul Hgb (12.0-16.0) g/dl Hct (35-47) % MCV (80-97) fL MCH (27-31) pg MCHC (31-36) g/dl RDW (10.5-15) % Plt Count (150-450) 10^3/ul MPV (7.4-10.4) um3 Neut % (Auto) (38-83) % Lymph % (Auto) (25-47) % Marion % (Auto) (1-9) % Eos % (Auto) (0-6) % Baso % (Auto) (0-2) % Absolute Neuts (auto) (1.5-7.7) 10^3/ul Absolute Lymphs (auto) (1.0-4.8) 10^3/ul Absolute Monos (auto) (0-0.8) 10^3/ul Absolute Eos (auto) (0-0.6) 10^3/ul Absolute Basos (auto) (0-0.2) 10^3/ul Absolute Nucleated RBC 10^3/ul Nucleated RBC % INR (Anticoag Therapy) 0.94 (0.89-1.11) Sodium 138 (133-145) mmol/L Potassium TNP Chloride 106 (101-111) mmol/L Carbon Dioxide 28 (22-32) mmol/L Anion Gap 4 (2-11) mmol/L BUN 23 (6-24) mg/dL Creatinine 0.80 (0.51-0.95) mg/dL Est GFR ( Amer) 89.0 (>60) Est GFR (Non-Af Amer) 69.2 (>60) BUN/Creatinine Ratio 28.8 H (8-20) Glucose 89 (70-100) mg/dL Lactic Acid 1.1 (0.5-2.0) mmol/L Calcium 9.2 (8.6-10.3) mg/dL Total Bilirubin 0.30 (0.2-1.0) mg/dL AST TNP ALT 17 (7-52) U/L Alkaline Phosphatase 46 (34-104) U/L Troponin I 0.01 (<0.04) ng/mL B-Natriuretic Peptide ( - 100) pg/mL Total Protein 6.7 (6.4-8.9) g/dL Albumin 3.9 (3.2-5.2) g/dL Globulin 2.8 (2-4) g/dL Albumin/Globulin Ratio 1.4 (1-3) TSH 3.88 (0.34-5.60) mcIU/mL Thyroxine (T4) 6.50 (6.09-12.23) mcg/mL Urine Color Urine Appearance Urine pH (5-9) Ur Specific [place] (1.010-1.030) Urine Protein (Negative) Urine Ketones (Negative) Urine Blood (Negative) Urine Nitrate (Negative) Urine Bilirubin (Negative) Urine Urobilinogen (Negative) Ur Leukocyte Esterase (Negative) Urine WBC (Auto) (Absent) Urine RBC (Auto) (Absent) Urine Bacteria (Absent) Urine Glucose (Negative) Assess/Plan/Problems-Billing Assessment: - Patient Problems (1) Palpitations Current Visit: Yes Status: Acute Code(s): R00.2 - PALPITATIONS SNOMED Code (s): 82792840 Comment: None since admission. This is the first episode like this since her ablation according to the patient. I advised her to call Dr. Cevallos for further evaluation. (2) History of hypothyroidism Current Visit: No Status: Chronic Priority: Medium Code(s): Z86.39 - PERSONAL HISTORY OF ENDO, NUTRITIONAL AND METABOLIC DISEASE SNOMED Code(s): 210026573 Comment: TSH wnl 08/07/17. Continue levothyroxine. (3) Hx of rheumatoid arthritis Current Visit: No Status: Chronic Priority: Medium Code(s): Z87.39 - PERSONAL HISTORY OF DISEASES OF THE MS SYS AND CONN TISS SNOMED Code(s): 844439925 Comment: Fup with Dr. Munson. Continue MTX. (4) Thrombocytosis Current Visit: Yes Status: Acute Comment: Fup with Dr. Macedo. (5) Hx of gastroesophageal reflux (GERD) Current Visit: No Status: Chronic Priority: Medium Code(s): Z87.19 - PERSONAL HISTORY OF OTHER DISEASES OF THE DIGESTIVE SYSTEM SNOMED Code(s): 88918802864490 Comment: Continue ranitidine. Status and Disposition: Discharge now. Fup Remington Huffman Mauser, [place].
--- NOTE | 2017-08-08 11:56 | DS ---
CC: Dr. Avilez; Dr. Macedo; Dr. Cevallos; Dr. Munson * DISCHARGE SUMMARY: DATE OF ADMISSION: 08/07/17 DATE OF DISCHARGE: 08/08/17 HISTORY OF PRESENT ILLNESS: This 77-year-old woman presented with palpitations. She was on a trip to [facility]. She had one loose bowel movement. She felt palpitations. She also said she felt weak. There was no chest pain, loss of consciousness, dizziness. She did not fall down. She says the palpitations went away before she came to the emergency room, but occurred for short time after that. This was not seemed to have been captured. She did have lot of PACs on monitor, but these were pretty much continuous and not associated with any symptoms. She had 2 troponin levels, which were normal. In the hospital, her TSH was normal. She was monitored on telemetry overnight. She felt well. I have instructed her to call Dr. Cevallos for further evaluation regarding her palpitations. I have not made any changes in her medications. FINAL DIAGNOSES: 1. Palpitations. 2. History of coronary artery disease, supraventricular tachycardia, and ablation. 3. Hypothyroidism. 4. Rheumatoid arthritis. 5. Thrombocytosis. 6. Gastroesophageal reflux disease. DISCHARGE MEDICATIONS: 1. Aspirin 81 mg daily. 2. Metoprolol succinate one half of a 25 mg tablet daily. 3. Potassium chloride 20 mEq daily. 4. Acetaminophen as prescribed. 5. Folic acid 1 mg daily. 6. Leucovorin one tablet weekly. 7. Levothyroxine 50 mcg daily. 8. Etanercept as prescribed. 9. Atorvastatin 10 mg h.s. 10. Methotrexate 5 mg weekly. 11. Vitamin D3 two tablets daily. 12. Ibuprofen two tablets daily p.r.n. 13. Fluticasone nasal spray in each naris one spray daily. 14. Zolpidem as prescribed. 15. Levocetirizine one tablet daily. 16. Montelukast one tablet daily. 17. Coenzyme Q10 one tablet daily. 18. Sertraline 25 mg daily. 19. [place]-3 1000 mg one daily. 20. Magnesium 500 mg daily. 21. Tizanidine 4 mg daily p.r.n. 22. Cyanocobalamin 5000 mcg daily by mouth. 23. Doxycycline 40 mg daily. 24. Ranitidine 150 mg daily. [id number]/[facility] #: [id number] MTDD
== END 2017-08-08 12:50 | disposition home or self-care (01) ==
LOC: ED 19:04 → MEDTELE 21:25
PROVIDERS: ADMIT Hospitalist; ATTEND Internal Medicine
DX: R00.2 Palpitations (principal); E86.0 Dehydration; I25.10 Atherosclerotic heart disease of native coronary artery without angina pectoris; I47.1 Supraventricular tachycardia; E03.9 Hypothyroidism, unspecified; M06.9 Rheumatoid arthritis, unspecified; D47.3 Essential (hemorrhagic) thrombocythemia; K21.9 Gastro-esophageal reflux disease without esophagitis; E87.5 Hyperkalemia; J45.909 Unspecified asthma, uncomplicated; Z79.82 Long term (current) use of aspirin; Z79.899 Other long term (current) drug therapy; Z88.0 Allergy status to penicillin; Z88.2 Allergy status to sulfonamides; R06.02 Shortness of breath
CPT/HCPCS: 36415; 71010; 80053; 81003; 81015; 83605; 83735; 83880; 84436; 84443; 84484; 85025; 85610; 93005; 96372; 96374; 99285; A9270-GY; G0378; J1650

== ENCOUNTER 2018-01-26 10:50 | Emergency (ER) | payer MEDICARE ==
--- OUTSIDE RECORDS SUMMARY | 2018-01-26 11:02 | XMS REPORT ---
:1940 External Reference #:[id number] Author Organization [facility] Address [address] [place] [address] Phone [phone] Care Team Providers Name Role Phone Eloina Avilez MD Care Team Information Hammerer Tab Unavailable Eloina Avilez MD Primary Care Physician Unavailable Payers Type Date Identification Numbers Payment Provider Subscriber Commercial Effective: Policy Number: [id number] [facility] [place] Karli Anaya 2017 Group Number: [id number] [address] Group Name: [place] [address] PayID: [id number] Problems Date Description Provider Status Onset: 01/10/2018 Adverse effect of drug/meds/biol subst, Sandra George M.D. Active init Onset: 01/10/2018 Allergic rhinitis due to animals Sandra George M.D. Active Onset: 01/10/2018 Allergic rhinitis due to pollen Sandra George M.D. Active Onset: 01/10/2018 Mild intermittent asthma Sandra George M.D. 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 Home Environment Has a window air conditioner Home Environment Stairs are present Home Environment Finished Basement Home Environment The basement is dry Home Environment bedding down alternative Home Environment Mattress is 3 years old Home Environment Regular Mattress Home Environment Pillows are rubber (foam) Home Environment Pillows are encased in an allergy proof case Home Environment There are draperies in the home Home Environment The home is not sylvester Home Environment The floors are carpeted Home Environment The floors are tile Home Environment Uses forced air heating Home Environment [place] Home Environment Water Source: 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 Methotrexate Active Tablets 12.5mg daily Jeimy, JR LEONOR Elizalde Zolpidem Active Tablets 5mg as needed Cotton, Tartrate MD Eloina Klor-Con M20 Active Tablets ER 20Meq daily Mauser, Faizan GALVEZ Leucovorin Active Tablets 5mg daily Jeimy, Calcium JR LEONOR Elizalde Metoprolol Active Tablets ER 25mg 12.5mg Mauser, Succinate ER 24HR daily Faizan GALVEZ Folic Acid Active Tablets 1mg once daily Jeimy, JR LEONOR Elizalde Sertraline HCL Active Tablets 25mg one tab Cotton, daily MD Eloina Levothyroxine Active Tablets 50mcg daily Cotton, Sodium MD Eloina Flovent HFA Active Aerosol 110mcg/Ac two Unknown t inhaltions twice daily Aspir-[address] 81mg once daily Unknown Crestor Active Tablets 5mg once daily Unknown / Enbrel Active Soln 50mg/ml aaa daily Unknown / Prefill Syringe Levocetirizine Active Tablets 5mg 1 by mouth Unknown Dihydrochloride /0000 every day Fluticasone Active Suspension 50mcg/Act 1 squirt Unknown Propionate each nostril daily Tizanidine HCL Active Capsules 4mg once daily Unknown / Vitamin D3 Super Active Capsules 2000Unit daily Unknown Strength /0000 [place] 3 Active Capsules 950mg daily Unknown / Vitamin B-12 Active Tablets 5000mcg Unknown Natural / Magnesium Active Tablets 500mg 2 by mouth Unknown / every day Turmeric Active Capsules 500mg daily Unknown Ecotrin Maximum Active Tablets DR 500mg as needed Unknown Strength /0000 Immunizations CPT Code Status Date Vaccine Lot # [id number] Given Unknown Pneumococcal Vaccine 68929 Given Unknown Influenza Vaccine Vital Signs Date Vital Result Comment 01/10/2018 Height 61.5 inches 5'1.50" Weight 135.00 lb Weight in kg's 61.236 Respiratory Rate 20 /min Heart Rate 89 /min O2 % BldC Oximetry 96 % BP Systolic 127 mmHg BP Diastolic 68 mmHg BMI (Body Mass Index) 25.1 kg/m2 Results Description No Information Procedures Date CPT Code Description Status 01/10/2018 93905 Skin Test Scratch # Of Units ____ Completed 01/10/2018 56648 Pulmonary Function Test Completed Encounters Type Date Location Provider CPT E/M Dx Office Visit 01/10/2018 2:00p [place] Sandra George M.D. 78190 J45.20 J30.1 J30.81 T50.995A Plan of Care Future Appointment(s):03/07/2018 11:40 am - Sandra George M.D. at [id number] - Sandra George M.D.J45.20 Mild intermittent asthma, [id number] Allergic rhinitis due to doybqxT25.81 Allergic rhinitis due to animal (cat) (dog ) hair and jdlphbF45.995A Adverse effect of drug/meds/biol subst, initNew Medication:Azelastine HCL (Ophthalmic) 0.05 %Follow up:6 weeks CHECK-UP/FOLLOW UP VISIT: Continued management of patient's medical care.Recommendations: Refrain from wearing perfumes/scented colognes while visiting our office. Full PFT with Xopenex 0.63 mg performed,d reviewed, looks ok , in the 90's and does get only mildly better after the nebulizertreatment Your lung findings did not really change OK to stay off Flovent for now, but do start if you develop deep chest symptoms or trouble breathing For now, I would continue the nasal spray continue the levocetirizine Start an allergy eye drops such as Azelastine or Alaway 1 drop in each eye once or twice daily as needed Skin testing to common environmental allergens performed,d reviewed mildly positive to birch and dog only, negative at this time to all other pollens, molds dust mite, and cat. Continue the avoid the penicillin and bactrim for now, the penicilin is the only one with reliable testing, however it does not predict if the penicillin will make your skin peal
[2018-01-26 11:06] VITALS: BP 130/67
--- NOTE | 2018-01-26 11:34 | UC ---
Respiratory Complaint HPI - HPI Summary HPI Summary: PATIENT PRESENTING PRESENTS WITH PROGRESSIVELY WORSENING COUGH AND CHEST CONGESTION. SHE WAS SEEN BY HER PCP AND INITIALLY PLACED ON CLINDAMYCIN WHICH UPSET HER STOMACH. AFTER A FEW DOSES SHE WAS CHANGED TO Z-REYES. SHE HAS 1 MORE DOSE LEFT BUT OF YESTERDAY FELT HER SYMPTOMS WERE SIGNIFICANTLY WORSE. SHE REPORTS FEELING INCREDIBLY FATIGUED AND WEAK. IS HAVING A HARD TIME MOVING AROUND DUE TO HER OVERALL MALAISE. SHE IS REQUESTING A CHEST X-RAY TODAY FOR FURTHER EVALUATION WELL A URINE TEST STATING THAT "WHEN OLD PEOPLE GET SICK THEY GET UTIs". SHE IS ON BOTH METHOTREXATE AND ENBREL FOR RHEUMATOID ARTHRITIS. SHE HAS TAKEN THESE MEDICATIONS FOR OVER 8 YEARS. SHE DENIES FEVER. - History of Current Complaint Chief Complaint: UCRespiratory Stated Complaint: COUGH Time Seen by Provider: 01/26/18 11:29 Hx Obtained From: Patient Onset/Duration: Gradual Onset, Lasting Days, Still Present Timing: Constant Severity Initially: Moderate Severity Currently: Moderate Pain Intensity: 0 Pain Scale Used: 0-10 Numeric Character: Cough: Productive Aggravating Factors: Nothing Alleviating Factors: Nothing Associated Signs And Symptoms: Positive: URI. Negative: Wheezing - Allergies/Home Medications Allergies/Adverse Reactions: Allergies Allergy/AdvReac Type Severity Reaction Status Date / Time Iodinated Contrast- Oral and Allergy Unknown Verified 01/26/18 11:07 IV Dye Reaction Details Penicillins Allergy Rash Verified 01/26/18 11:07 Sulfa (Sulfonamide Allergy Rash Verified 01/26/18 11:07 Antibiotics) bee sting Allergy Severe Anaphylatic Uncoded 01/26/18 11:07 Shock Home Medications: Home Medications Aspirin [Ecotrin] 650 mg PO DAILY 01/26/18 [History Confirmed 01/26/18] Fluticasone HFA 110 mcg(NF) [Flovent HFA 110 mcg(NF)] 1 puff INH BID 01/26/18 [ History Confirmed 01/26/18] Rosuvastatin Calcium [Crestor] 5 mg PO DAILY 01/26/18 [History Confirmed ] Turmeric Root Extract [Turmeric] 500 mg PO DAILY 01/26/18 [History Confirmed ] PMH/Surg Hx/FS Hx/Imm Hx - Additional Past Medical History Additional PMH: RA Endocrine History: Hypothyroidism, Dyslipidemia Cardiovascular History: Cardiac Disease - SVT S/P ABLATION, Hypertension - Surgical History Surgical History: Yes Surgery Procedure, Year, and Place: RT HIP PINNING AUG 2014 - Family History Known Family History: Positive: Hypertension - Social History Alcohol Use: None Substance Use Type: None Smoking Status (MU): Never Smoked Tobacco Have You Smoked in the Last Year: No - Immunization History Most Recent Influenza Vaccination: 2013 Most Recent Tetanus Shot: up to date Most Recent Pneumonia Vaccination: 2012 Review of Systems Constitutional: Fatigue Respiratory: Shortness Of Breath, Cough Cardiovascular: Negative Gastrointestinal: Negative Neurological: Headache, Weakness All Other Systems Reviewed And Are Negative: Yes Physical Exam Triage Information Reviewed: Yes Appearance: No Pain Distress, Ill-Appearing - MILD, Other: - PT HAVING A HARD TIME MOVING AND AMBULATING DUE TO C/O WEAKNESS AND FATIGUE Vital Signs: Initial Vital Signs Temp 97.5 F 01/26/18 10:56 Pulse 61 01/26/18 10:56 Resp 18 01/26/18 10:56 BP 130/67 01/26/18 10:56 Pulse Ox 100 01/26/18 10:56 Eyes: Positive: Conjunctiva Clear ENT: Positive: Hearing grossly normal, Pharynx normal, TMs normal Neck: Positive: Supple, Nontender, No Lymphadenopathy Respiratory: Positive: Lungs clear, No respiratory distress, No accessory muscle use, Other: - PAROXYSMS OF WET COUGH DURING ENCOUNTER Cardiovascular Exam: Normal Abdomen Description: Positive: Soft Musculoskeletal: Positive: No Edema Neurological: Positive: Alert Psychological: Positive: Age Appropriate Behavior Skin: Negative: rashes UC Diagnostic Evaluation - Laboratory O2 Sat by Pulse Oximetry: 100 Diagnostic Studies Comment: URINE DIP SP. GR. 1.010, 1+ BLOOD - Radiology Xray Interpretation: No Acute Changes - CXR Radiology Interpretation Completed By: Radiologist Respiratory Course/Dx - Course Course Of Treatment: CXR NON ACUTE. URINE DIP WITH 1+ BLOOD WHICH PT STATES SHE HAS SEEN UROLOGY ABOUT AND IS BASELINE FOR HER. PT WITH WORSENING SYMPTOMS DESPITE ABX TREATMENT AND IS ON 2 IMMUNOSUPPRESSIVE MEDICATIONS. HAVE ADVISED TRANSFER TO [facility] FOR FURTHER EVALUATION. PT OFFERED TRANSPORT BY AMBULANCE BUT DECLINES. ADVISED THAT BY NOT TRAVELING IN A MONITORED SETTING SHE COULD BE RISKING WORSENING OF HER CONDITION THAT COULD POSE A THREAT TO HER LIFE, HEALTH AND MEDICAL SAFETY. SHE VERBALIZES UNDERSTANDING AND CONTINUES TO DECLINE AMBULANCE TRANSFER. - Differential Dx/Diagnosis Provider Diagnoses: 1. COUGH/WEAKNESS/FATIGUE. 2. MICROSCOPIC HEMATURIA - Physician Notification/Consults Discussed Patient Care With: ROMI MURRAY RN - TO [facility] BY PRIVATE CAR Time Discussed With Above Provider: 12:35 Discharge - Sign-Out/Discharge Documenting (check all that apply): Discharge/Admit/Transfer - Discharge Plan Condition: Stable Disposition: HOME Patient Education Materials: Upper Respiratory Infection (ED), Hematuria (ED) Referrals: Eloina Avilez MD [Primary Care Provider] - If Needed [facility] [Provider Group] - 2 Weeks Additional Instructions: GIVEN YOUR PROGRESSIVE SYMPTOMS OF WEAKNESS, FATIGUE AND PRODUCTIVE COUGH IN THE SETTING OF 2 IMMUNOSUPPRESSIVE MEDICATIONS, RECOMMEND GOING TO THE [facility] DIRECTLY FROM HERE FOR FURTHER EVALUATION. ESPECIALLY IN LIGHT OF RECENT TREATMENT WITH ANTIBIOTICS WITH NO IMPROVEMENT. YOU DO HAVE SOME BLOOD IN YOUR URINE WHICH YOU STATE IS BASELINE FOR YOU. SINCE IT HAS BEEN YEARS SINCE YOU HAVE BEEN SEEN FOR THIS CONSIDER OUTPATIENT REEVALUATION BY UROLOGY TO ENSURE THERE IS NO NEW UNDERLYING ETIOLOGY FOR THIS. - Billing Disposition and Condition Condition: STABLE Disposition: HOME
--- NOTE | 2018-01-26 11:39 | RAD ---
INDICATION: Productive cough for one week. Shortness of breath. COMPARISON: August 07, 2017 and August 28, 2014 TECHNIQUE: Dual energy PA and routine lateral views of the chest were obtained. REPORT: Costochondral calcifications noted without change compared with the 2014 exam accounting for appearance of a pseudo nodule at the medial RIGHT upper lung zone superimposed over the posterior segment of the sixth rib without concern. No suspicious focal pulmonary lesions, alveolar consolidation, pleural effusion, or pneumothorax. The lung volumes are elevated. Negative for cardiomegaly. Unremarkable central pulmonary vasculature. Mildly tortuous descending thoracic aorta. Mild multilevel thoracic degenerative spondylosis. IMPRESSION: Stigmata of probable chronic obstructive pulmonary disease. No acute cardiopulmonary process evident.
== END 2018-01-26 12:30 | disposition home or self-care (01) ==
LOC: UCEAST 10:50
DX: R05 Cough (principal); R53.1 Weakness; R53.83 Other fatigue; R31.29 Other microscopic hematuria; Z88.0 Allergy status to penicillin; Z88.2 Allergy status to sulfonamides; Z91.030 Bee allergy status; Z91.041 Radiographic dye allergy status; M06.9 Rheumatoid arthritis, unspecified; E03.9 Hypothyroidism, unspecified; E78.5 Hyperlipidemia, unspecified; I10 Essential (primary) hypertension
CPT/HCPCS: 71046; 81003; 99212; G0463

== ENCOUNTER 2018-01-26 13:10 | Emergency (ER) | payer MEDICARE ==
[2018-01-26] MEDS ORDERED: NS 0.9% 1000 ML* 1,000 ML IV ONE (13:55)
[2018-01-26 14:42] LABS: INR 0.95 (0.77-1.02)
[2018-01-26 14:45] LABS: EGFR Non-African American 72.3 (>60)
[2018-01-26] MEDS ORDERED: Magnesium Sulfate 1 GM IV* 1 GM/100 ML BAG IV ONE (14:45)
[2018-01-26 15:03] LABS: Urine Appearance Clear; Urine Blood 2+ (Negative); Urine Color Straw; Urine Ketones Negative (Negative); Urine Protein Negative (Negative); Urine Specific Gravity 1.006 (1.010-1.030); Urine Urobilinogen Negative (Negative)
[2018-01-26 15:07] LABS: ABS Basophils 0 10^3/ul (0-0.2); ABS Eosinophils 0.1 10^3/ul (0-0.6); ABS Lymphocytes 0.7 10^3/ul (1.0-4.8); ABS Monocytes 0.3 10^3/ul (0-0.8); ABS Neutrophils 1.5 10^3/ul (1.5-7.7); ABS Nucleated RBC 0 10^3/ul; Eosinophil % 2.6 % (0-6); Hematocrit 36 % (35-47); Hemoglobin 12.4 g/dl (12.0-16.0); Lymphocyte % 27.9 % (25-47); Mean Corpuscular HGB Conc 34 g/dl (31-36); Mean Corpuscular Hemoglobin 37 pg (27-31); Mean Corpuscular Volume 108 fL (80-97); Mean Platelet Volume 6.7 um3 (7.4-10.4); Nucleated Red Blood Cells % 0.2; Platelet Count 258 10^3/ul (150-450); Red Blood Count 3.35 10^6/ul (4.0-5.4); Red Cell Distribution Width 14 % (10.5-15); White Blood Count 2.5 10^3/ul (3.5-10.8)
[2018-01-26 16:08] VITALS: BP 146/81
--- NOTE | 2018-01-26 17:38 | ED ---
Vimal Alvarez Stephanie, scribed for Bronson Estrella on 01/26/18 at 1352 . Respiratory - HPI Summary HPI Summary: The pt is a 77 y/o F presenting to the ED with c/o cough that began on 01/20/18. Symptoms include weakness and decreased appetite. The pt states she had laryngitis on 01/19/18. She was diagnosed with an upper respiratory infection and given clindamycin which upset her stomach. She took 3 doses of that then was switched to azithromycin and she took all except 1 dose. She went to and the CXR showed COPD. - History of Current Complaint Chief Complaint: EDUpperRespComplaint Stated Complaint: COUGH-SENT FROM [facility] Time Seen by Provider: 01/26/18 13:36 Hx Obtained From: Patient Onset/Duration: Gradual Onset, Lasting Weeks - 1, Still Present Timing: Constant Current Severity: Mild Pain Intensity: 2 Character: Cough (Nonproductive) Sputum Amount: Small Aggravating Factor(s): Nothing Alleviating Factor(s): Nothing - Allergy/Home Medications Allergies/Adverse Reactions: Allergies Allergy/AdvReac Type Severity Reaction Status Date / Time Iodinated Contrast- Oral and Allergy Unknown Verified 01/26/18 13:13 IV Dye Reaction Details Penicillins Allergy Rash Verified 01/26/18 13:13 Sulfa (Sulfonamide Allergy Rash Verified 01/26/18 13:13 Antibiotics) bee sting Allergy Severe Anaphylatic Uncoded 01/26/18 13:13 Shock Home Medications: Home Medications Acetaminophen [Acetaminophen Extra Strength] 500 - 1,000 mg PO DAILY PRN MDD 2000mg 01/26/18 [History Confirmed 01/26/18] Aspirin EC TAB* [Ecotrin EC Low Dose 81 MG*] 81 mg PO DAILY 01/26/18 [History Confirmed 01/26/18] Aspirin EC TAB* [Ecotrin EC TAB*] 650 mg PO DAILY PRN 01/26/18 [History Confirmed 01/26/18] Azelastine 0.05% (OPHTH)(NF) [Optivar 0.05% (NF)] 1 drop BOTH EYES BID 01/26/18 [History Confirmed 01/26/18] Azithromycin TAB* [Zithromax TAB (Z-REYES) 250 mg #6 tabs] 250 mg PO DAILY [History Confirmed 01/26/18] Cholecalciferol TAB* [Vitamin D TAB*] 2,000 units PO .FOUR TIMES A WEEK [History Confirmed 01/26/18] Cholecalciferol TAB* [Vitamin D TAB*] 3,000 unit PO .THREE TIMES A WEEK [History Confirmed 01/26/18] Etanercept SYR (NF) [Enbrel (NF)] 50 mg SUBCUT WEEKLY 01/26/18 [History Confirmed 01/26/18] Magnesium Oxide TAB* [MagOx 400 TAB*] 500 mg PO DAILY 01/26/18 [History Confirmed 01/26/18] Metoprolol Succinate XL TAB* [Toprol XL TAB*] 12.5 mg PO DAILY 01/26/18 [ History Confirmed 01/26/18] [place]-3 Fatty Acids (Nf) [Fish Oil (NF)] 950 mg PO DAILY 01/26/18 [History Confirmed 01/26/18] Rosuvastatin (NF) [Crestor (NF)] 5 mg PO QPM 01/26/18 [History Confirmed ] Sertraline* [Zoloft*] 25 mg PO DAILY 01/26/18 [History Confirmed 01/26/18] PMH/Surg Hx/FS Hx/Imm Hx Endocrine/Hematology History: Reports: Hx Thyroid Disease, Hx Anemia - MILDLY, ON FOLIC ACID Denies: Hx Diabetes Cardiovascular History: Reports: Hx Angina, 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, Hx Hypercholesterolemia, Hx Hypertension, Hx Rheumatic Fever - A CHILD, Hx Valvular Heart Disease - MVR, Other Cardiovascular Problems/Disorders - SVT ablation cured it, Denies: Hx Myocardial Infarction, Hx Pacemaker/ICD Respiratory History: Reports: Hx Seasonal Allergies, Hx Sleep Apnea - USES MOUTH PIECE, Other Respiratory Problems/Disorders - reactive airway disease Denies: Hx Asthma, Hx Chronic Obstructive Pulmonary Disease (COPD) GI History: Reports: Hx Gastroesophageal Reflux Disease, Hx Hiatal Hernia, Hx Irritable Bowel - AT TIMES Denies: Hx Ulcer Comment Only: Other GI Disorders - INSULIN RESISTANT History: Reports: Hx Kidney Stones Musculoskeletal History: Reports: Hx Arthritis - rheumatoid arthritis, Hx Back Problems, Hx Orthopedic Injury - femoral neck fx Aug 2014, Hx Osteoporosis, Other Musculoskeletal History - RA, osteoarthritis Sensory History: Reports: Hx Contacts or Glasses, Hx Hearing Problem Denies: Hx Hearing Aid Opthamlomology History: Reports: Hx Contacts or Glasses Neurological History: Denies: Hx Headaches Psychiatric History: Reports: Hx Anxiety Denies: Hx Panic Disorder - Cancer History Hx Chemotherapy: No Hx Radiation Therapy: No - Surgical History Surgery Procedure, Year, and Place: RT HIP PINNING AUG 2014 Hx Anesthesia Reactions: No Infectious Disease History: No Infectious Disease History: Denies: Hx Clostridium Difficile, Hx Hepatitis, Hx Human Immunodeficiency Virus (HIV), Hx of Known/Suspected MRSA, Hx Shingles, Hx Tuberculosis, Hx Known/ Suspected VRE, Hx Known/Suspected VRSA, History Other Infectious Disease, Traveled Outside the [place] in Last 30 Days - Family History Known Family History: Positive: Hypertension - Social History Occupation: Retired Lives: With Family Alcohol Use: None Hx Substance Use: No Substance Use Type: Reports: None Hx Tobacco Use: No Smoking Status (MU): Never Smoked Tobacco Have You Smoked in the Last Year: No Review of Systems Positive: Other - lack of appetite. Negative: Fever Positive: Cough Positive: Weakness All Other Systems Reviewed And Are Negative: Yes Physical Exam - Summary Physical Exam Summary: Appearance: Well appearing, no pain distress Skin: warm, dry, reflects adequate perfusion Head/face: normal Eyes: EOMI, SIMÓN ENT: dry mucous membranes Neck: supple, non-tender Respiratory: CTA, breath sounds present Cardiovascular: RRR, pulses symmetrical Abdomen: non-tender, soft Bowel: present Musculoskeletal: normal, strength/ROM intact Neuro: normal, sensory motor intact, A&Ox3 Triage Information Reviewed: Yes Vital Signs On Initial Exam: Initial Vitals Temp Pulse Resp BP Pulse Ox 97.2 F 78 14 149/68 100 01/26/18 13:14 01/26/18 13:14 01/26/18 13:14 01/26/18 13:14 01/26/18 13:14 Vital Signs Reviewed: Yes Diagnostics - Vital Signs Vital Signs Temp Pulse Resp BP Pulse Ox 01/26/18 13:14 97.2 F 78 14 149/68 100 - Laboratory Lab Results: Lab Results 01/26/18 01/26/18 01/26/18 Range/Units 14:14 14:14 14:14 WBC 2.5 L (3.5-10.8) 10^3/ul RBC 3.35 L (4.0-5.4) 10^6/ul Hgb 12.4 (12.0-16.0) g/dl Hct 36 (35-47) % MCV 108 H (80-97) fL MCH 37 H (27-31) pg MCHC 34 (31-36) g/dl RDW 14 (10.5-15) % Plt Count 258 (150-450) 10^3/ul MPV 6.7 L (7.4-10.4) um3 Neut % (Auto) 58.6 (38-83) % Lymph % (Auto) 27.9 (25-47) % George % (Auto) 10.4 H (0-7) % Eos % (Auto) 2.6 (0-6) % Baso % (Auto) 0.5 (0-2) % Absolute Neuts (auto) 1.5 (1.5-7.7) 10^3/ul Absolute Lymphs (auto) 0.7 L (1.0-4.8) 10^3/ul Absolute Monos (auto) 0.3 (0-0.8) 10^3/ul Absolute Eos (auto) 0.1 (0-0.6) 10^3/ul Absolute Basos (auto) 0 (0-0.2) 10^3/ul Absolute Nucleated RBC 0 10^3/ul Nucleated RBC % 0.2 INR (Anticoag Therapy) (0.77-1.02) APTT (26.0-36.3) seconds Sodium 132 L (139-145) mmol/L Potassium 4.6 (3.5-5.0) mmol/L Chloride 98 L (101-111) mmol/L Carbon Dioxide 26 (22-32) mmol/L Anion Gap 8 (2-11) mmol/L BUN 15 (6-24) mg/dL Creatinine 0.77 (0.51-0.95) mg/dL Est GFR ( Amer) 93.0 (>60) Est GFR (Non-Af Amer) 72.3 (>60) BUN/Creatinine Ratio 19.5 (8-20) Glucose 152 H (70-100) mg/dL Lactic Acid (0.5-2.0) mmol/L Calcium 9.1 (8.6-10.3) mg/dL Magnesium 1.8 L (1.9-2.7) mg/dL Total Bilirubin 0.30 (0.2-1.0) mg/dL AST 22 (13-39) U/L ALT 15 (7-52) U/L Alkaline Phosphatase 45 (34-104) U/L Troponin I 0.02 (<0.04) ng/mL B-Natriuretic Peptide 27 ( - 100) pg/mL Total Protein 6.6 (6.4-8.9) g/dL Albumin 3.9 (3.2-5.2) g/dL Globulin 2.7 (2-4) g/dL Albumin/Globulin Ratio 1.4 (1-3) Urine Color Urine Appearance Urine pH (5-9) Ur Specific [place] (1.010-1.030) Urine Protein (Negative) Urine Ketones (Negative) Urine Blood (Negative) Urine Nitrate (Negative) Urine Bilirubin (Negative) Urine Urobilinogen (Negative) Ur Leukocyte Esterase (Negative) Urine WBC (Auto) (Absent) Urine RBC (Auto) (Absent) Urine Bacteria (Absent) Urine Glucose (Negative) Influenza A (Rapid) (Negative) Influenza B (Rapid) (Negative) 01/26/18 01/26/18 01/26/18 Range/Units 14:14 14:14 14:40 WBC (3.5-10.8) 10^3/ul RBC (4.0-5.4) 10^6/ul Hgb (12.0-16.0) g/dl Hct (35-47) % MCV (80-97) fL MCH (27-31) pg MCHC (31-36) g/dl RDW (10.5-15) % Plt Count (150-450) 10^3/ul MPV (7.4-10.4) um3 Neut % (Auto) (38-83) % Lymph % (Auto) (25-47) % George % (Auto) (0-7) % Eos % (Auto) (0-6) % Baso % (Auto) (0-2) % Absolute Neuts (auto) (1.5-7.7) 10^3/ul Absolute Lymphs (auto) (1.0-4.8) 10^3/ul Absolute Monos (auto) (0-0.8) 10^3/ul Absolute Eos (auto) (0-0.6) 10^3/ul Absolute Basos (auto) (0-0.2) 10^3/ul Absolute Nucleated RBC 10^3/ul Nucleated RBC % INR (Anticoag Therapy) 0.95 (0.77-1.02) APTT 28.5 (26.0-36.3) seconds Sodium (139-145) mmol/L Potassium (3.5-5.0) mmol/L Chloride (101-111) mmol/L Carbon Dioxide (22-32) mmol/L Anion Gap (2-11) mmol/L BUN (6-24) mg/dL Creatinine (0.51-0.95) mg/dL Est GFR ( Amer) (>60) Est GFR (Non-Af Amer) (>60) BUN/Creatinine Ratio (8-20) Glucose (70-100) mg/dL Lactic Acid 2.0 (0.5-2.0) mmol/L Calcium (8.6-10.3) mg/dL Magnesium (1.9-2.7) mg/dL Total Bilirubin (0.2-1.0) mg/dL AST (13-39) U/L ALT (7-52) U/L Alkaline Phosphatase (34-104) U/L Troponin I (<0.04) ng/mL B-Natriuretic Peptide ( - 100) pg/mL Total Protein (6.4-8.9) g/dL Albumin (3.2-5.2) g/dL Globulin (2-4) g/dL Albumin/Globulin Ratio (1-3) Urine Color Straw Urine Appearance Clear Urine pH 6.0 (5-9) Ur Specific [place] 1.006 L (1.010-1.030) Urine Protein Negative (Negative) Urine Ketones Negative (Negative) Urine Blood 2+ A (Negative) Urine Nitrate Negative (Negative) Urine Bilirubin Negative (Negative) Urine Urobilinogen Negative (Negative) Ur Leukocyte Esterase Negative (Negative) Urine WBC (Auto) Trace(0-5/hpf) (Absent) Urine RBC (Auto) Trace(0-2/hpf) (Absent) Urine Bacteria Absent (Absent) Urine Glucose Negative (Negative) Influenza A (Rapid) (Negative) Influenza B (Rapid) (Negative) 01/26/18 Range/Units 15:50 WBC (3.5-10.8) 10^3/ul RBC (4.0-5.4) 10^6/ul Hgb (12.0-16.0) g/dl Hct (35-47) % MCV (80-97) fL MCH (27-31) pg MCHC (31-36) g/dl RDW (10.5-15) % Plt Count (150-450) 10^3/ul MPV (7.4-10.4) um3 Neut % (Auto) (38-83) % Lymph % (Auto) (25-47) % George % (Auto) (0-7) % Eos % (Auto) (0-6) % Baso % (Auto) (0-2) % Absolute Neuts (auto) (1.5-7.7) 10^3/ul Absolute Lymphs (auto) (1.0-4.8) 10^3/ul Absolute Monos (auto) (0-0.8) 10^3/ul Absolute Eos (auto) (0-0.6) 10^3/ul Absolute Basos (auto) (0-0.2) 10^3/ul Absolute Nucleated RBC 10^3/ul Nucleated RBC % INR (Anticoag Therapy) (0.77-1.02) APTT (26.0-36.3) seconds Sodium (139-145) mmol/L Potassium (3.5-5.0) mmol/L Chloride (101-111) mmol/L Carbon Dioxide (22-32) mmol/L Anion Gap (2-11) mmol/L BUN (6-24) mg/dL Creatinine (0.51-0.95) mg/dL Est GFR ( Amer) (>60) Est GFR (Non-Af Amer) (>60) BUN/Creatinine Ratio (8-20) Glucose (70-100) mg/dL Lactic Acid (0.5-2.0) mmol/L Calcium (8.6-10.3) mg/dL Magnesium (1.9-2.7) mg/dL Total Bilirubin (0.2-1.0) mg/dL AST (13-39) U/L ALT (7-52) U/L Alkaline Phosphatase (34-104) U/L Troponin I (<0.04) ng/mL B-Natriuretic Peptide ( - 100) pg/mL Total Protein (6.4-8.9) g/dL Albumin (3.2-5.2) g/dL Globulin (2-4) g/dL Albumin/Globulin Ratio (1-3) Urine Color Urine Appearance Urine pH (5-9) Ur Specific [place] (1.010-1.030) Urine Protein (Negative) Urine Ketones (Negative) Urine Blood (Negative) Urine Nitrate (Negative) Urine Bilirubin (Negative) Urine Urobilinogen (Negative) Ur Leukocyte Esterase (Negative) Urine WBC (Auto) (Absent) Urine RBC (Auto) (Absent) Urine Bacteria (Absent) Urine Glucose (Negative) Influenza A (Rapid) Negative (Negative) Influenza B (Rapid) Negative (Negative) Result Diagrams: 01/26/18 14:14 01/26/18 14:14 Lab Statement: Any lab studies that have been ordered have been reviewed, and results considered in the medical decision making process. - EKG 14:05 Cardiac Rate: NL EKG Rhythm: Sinus Rhythm - 80 BPM EKG Interpretation: No acute changes Re-Evaluation - Re-Evaluation First Eval Re-Evaluation Time: 15:44 Change: Unchanged - The pt reports she does not feel much better. Disposition - Course Course Of Treatment: The pt is a 77 y/o F presenting to the ED with c/o cough that began on 01/20/18. Symptoms include weakness and decreased appetite. Blood work, urinalysis and EKG were obtained. Influenza A and B are both negative. Pt will be discharged home with a prescription for Tessalon Perles. - Differential Dx - Cardiopulmonary Differential Diagnoses - Cardiopulmonary: Bronchitis, Influenza, Lower Resp Infection, Other - viral syndrome - Diagnoses Provider Diagnoses: URI (upper respiratory infection), Weakness Discharge - Sign-Out/Discharge Documenting (check all that apply): Discharge/Admit/Transfer - Discharge - Discharge Plan Condition: Stable Disposition: HOME Prescriptions: Benzonatate CAP* [Tessalon 100 MG CAP*] 100 mg PO TID PRN #15 cap MDD 3 PRN Reason: Cough Patient Education Materials: Upper Respiratory Infection (ED), Weakness (ED) Referrals: Eloina Avilez MD [Primary Care Provider] - 3 Days Additional Instructions: Return to the ED for any new or worsening symptoms. - Billing Disposition and Condition Condition: STABLE Disposition: HOME The documentation as recorded by the Vimal brito Stephanie accurately reflects the service I personally performed and the decisions made by me, Bronson Estrella.
== END 2018-01-26 16:07 | disposition home or self-care (01) ==
LOC: ED 13:10
DX: J06.9 Acute upper respiratory infection, unspecified (principal); R53.1 Weakness; E07.9 Disorder of thyroid, unspecified; Z79.82 Long term (current) use of aspirin; I25.10 Atherosclerotic heart disease of native coronary artery without angina pectoris; E78.00 Pure hypercholesterolemia, unspecified; I10 Essential (primary) hypertension; K21.9 Gastro-esophageal reflux disease without esophagitis; Z87.442 Personal history of urinary calculi; J44.9 Chronic obstructive pulmonary disease, unspecified; Z88.0 Allergy status to penicillin; Z88.2 Allergy status to sulfonamides
CPT/HCPCS: 36415; 80053; 81003; 81015; 83605; 83735; 83880; 84484; 85025; 85610; 85730; 87086; 87502; 93005; 96360; 96374; 99282; J3475

== ENCOUNTER 2018-10-13 13:02 | Emergency (ER) | payer MEDICARE ==
[2018-10-13 13:38] VITALS: BP 124/70
--- NOTE | 2018-10-13 14:12 | UC ---
Throat Pain/Nasal Cristian HPI - HPI Summary HPI Summary: has oral thrush and has been treating with nystatin---she now has sore throat and the beginings of laryngitis---has been at several social gatherings lately - History of Current Complaint Chief Complaint: UCGeneralIllness Stated Complaint: SINUS, THROAT PAIN Time Seen by Provider: 10/13/18 14:10 Hx Obtained From: Patient Hx Last Menstrual Period: na ?: No Onset/Duration: Sudden Onset, Lasting Days - 2 Pain Intensity: 5 Pain Scale Used: 0-10 Numeric Cough: None Associated Signs & Symptoms: Positive: Hoarseness - Allergies/Home Medications Allergies/Adverse Reactions: Allergies Allergy/AdvReac Type Severity Reaction Status Date / Time Iodinated Contrast- Oral and Allergy Unknown Verified 10/13/18 13:38 IV Dye Reaction Details Penicillins Allergy Rash Verified 10/13/18 13:38 Sulfa (Sulfonamide Allergy Rash Verified 10/13/18 13:38 Antibiotics) bee sting Allergy Severe Anaphylatic Uncoded 10/13/18 13:38 Shock Home Medications: Home Medications HydroxyUREA CAP* [Hydrea CAP*] 500 mg PO DAILY 10/13/18 [History Confirmed 10/13] Levalbuterol HFA INHALER* [Xopenex Hfa Inhaler*] 2 puff INH QID PRN 10/13/18 [ History Confirmed 10/13/18] Melatonin [Meladox] 3 mg PO BEDTIME PRN 10/13/18 [History Confirmed 10/13/18] Mometasone 220 MCG MDI * [Asmanex 220 MCG MDI *] 2 puff INH BID 10/13/18 [ History Confirmed 10/13/18] Nystatin 1 each PO 10/13/18 [History] PMH/Surg Hx/FS Hx/Imm Hx Previously Healthy: No - RA - Surgical History Surgical History: Yes Surgery Procedure, Year, and Place: RT HIP PINNING AUG 2014 - Family History Known Family History: Positive: None, Hypertension - Social History Occupation: Retired Lives: With Family Alcohol Use: Rare Substance Use Type: None Smoking Status (MU): Never Smoked Tobacco Have You Smoked in the Last Year: No - Immunization History Most Recent Influenza Vaccination: 2013 Most Recent Tetanus Shot: up to date Most Recent Pneumonia Vaccination: 2012 Review of Systems All Other Systems Reviewed And Are Negative: Yes Constitutional: Positive: Negative Skin: Positive: Negative Eyes: Positive: Negative ENT: Positive: Sore Throat Respiratory: Positive: Negative Cardiovascular: Positive: Negative Gastrointestinal: Positive: Negative Genitourinary: Positive: Negative Motor: Positive: Negative Neurovascular: Positive: Negative Musculoskeletal: Positive: Negative Neurological: Positive: Negative Psychological: Positive: Negative Is Patient Immunocompromised?: No Physical Exam Triage Information Reviewed: Yes Appearance: Well-Appearing, No Pain Distress, Well-Nourished Vital Signs: Initial Vital Signs Temp 97.2 F 10/13/18 13:32 Pulse 78 10/13/18 13:32 Resp 18 10/13/18 13:32 BP 124/70 10/13/18 13:32 Pulse Ox 98 10/13/18 13:32 Vital Signs Reviewed: Yes Eye Exam: Normal Eyes: Positive: Conjunctiva Clear ENT Exam: Normal ENT: Positive: Normal ENT inspection, Hearing grossly normal, Pharyngeal erythema - has thrush on tongue, TMs normal, Hoarse voice, Uvula midline. Negative: Nasal congestion, Nasal drainage, Tonsillar swelling, Tonsillar exudate, Trismus, Muffled voice, Sinus tenderness Dental Exam: Normal Neck exam: Normal Neck: Positive: Supple, Nontender, No Lymphadenopathy Respiratory Exam: Normal Respiratory: Positive: Chest non-tender, Lungs clear, Normal breath sounds, No respiratory distress, No accessory muscle use Cardiovascular Exam: Normal Cardiovascular: Positive: RRR, No Murmur, Pulses Normal, Brisk Capillary Refill Musculoskeletal Exam: Normal Musculoskeletal: Positive: Strength Intact, ROM Intact, No Edema Neurological Exam: Normal Neurological: Positive: Alert, Muscle Tone Normal Psychological Exam: Normal Skin Exam: Normal Diagnostics - Laboratory Diagnostic Studies Completed/Ordered: RST (-) Throat Pain/Nasal Course/Dx - Course Assessment/Plan: continue nystatin, tylenol, rest increase fluids, follow with pcp prn - Differential Dx/Diagnosis Provider Diagnosis: Acute viral laryngitis, Thrush, oral Discharge - Sign-Out/Discharge Documenting (check all that apply): Patient Departure All imaging exams completed and their final reports reviewed: No Studies - Discharge Plan Condition: Stable Disposition: HOME Patient Education Materials: Oral Candidiasis (ED), Viral Syndrome (ED) Referrals: Eloina Avilez MD [Primary Care Provider] - If Needed - Billing Disposition and Condition Condition: STABLE Disposition: Home - Attestation Statements Provider Attestation: I was available for consult. This patient was seen by the SALE[facility]. The patient was not presented to, seen by, or examined by me. -Toya
== END 2018-10-13 14:45 | disposition home or self-care (01) ==
LOC: UCEAST 13:02
DX: J04.0 Acute laryngitis (principal); B37.0 Candidal stomatitis; Z88.0 Allergy status to penicillin; Z88.2 Allergy status to sulfonamides; Z91.030 Bee allergy status; Z91.041 Radiographic dye allergy status
CPT/HCPCS: 87651; 99212; G0463

== ENCOUNTER 2020-03-05 16:11 | Observation (INO) ==
[2020-03-05] MEDS ORDERED: NS 0.9% 1000 ml BAG 1,000 ML IV ONE ×2 (19:03→22:10)
[2020-03-05 20:25] LABS: ABS Lymphocytes 0.3 10^3/ul (1.0-4.8); ABS Monocytes 0.6 10^3/ul (0-0.8); Eosinophil % 0.1 %; Hematocrit 30 % (35-47); Hemoglobin 10.5 g/dL (12.0-16.0); Lymphocyte % 4.2 %; Mean Corpuscular HGB Conc 35 g/dL (31-36); Mean Corpuscular Hemoglobin 40 pg (27-31); Mean Corpuscular Volume 114 fL (80-97); Mean Platelet Volume 6.7 fL (7.4-10.4); Platelet Count 332 10^3/uL (150-450); Red Blood Count 2.59 10^6 /uL (3.70-4.87); Red Cell Distribution Width 14 % (10-15)
[2020-03-05 20:27] LABS: ALT 46 U/L (7-52); AST 67 U/L (13-39); Albumin 3.8 g/dL (3.2-5.2); Albumin/Globulin Ratio 1.4 (1-3); Alkaline Phosphatase 62 U/L (34-104); BUN/Creatinine Ratio 12.5 (8-20); Blood Urea Nitrogen 11 mg/dL (6-24); CO2 Carbon Dioxide 29 mmol/L (22-32); Calcium 9.1 mg/dL (8.6-10.3); Chloride 94 mmol/L (101-111); EGFR African American 74.6 (>60); EGFR Non-African American 61.7 (>60); Globulin 2.8 g/dL (2-4); Glucose 134 mg/dL (70-100); Potassium 4.2 mmol/L (3.5-5.0); Total Protein 6.6 g/dL (6.4-8.9)
[2020-03-05 20:46] LABS: Anion Gap 6 mmol/L (2-11); Sodium 129 mmol/L (135-145)
[2020-03-05 20:58] LABS: Troponin I 0.01 ng/mL (<0.03)
[2020-03-05] MEDS ORDERED: Iohexol 300 (CONTRAST) 10 ML SDV IV ONE (22:15)
[2020-03-05 22:54] LABS: TSH (Thyroid Stimulating Horm) 2.93 mcIU/mL (0.34-5.60)
[2020-03-05] MEDS ORDERED: Metoprolol Tartrate 5 mg VIAL 5 ml VIAL (1 mg/ml) IV ONE (23:21)
[2020-03-06] MEDS ORDERED: Fluticasone NASAL SPRAY 50MCG 16 gm SPRAY BTL BOTH NARES PRN (00:13)
[2020-03-06] MEDS ORDERED: Levalbuterol HFA INHALER MDI INH PRN (00:13)
[2020-03-06 00:48] LABS: Troponin I 0.04 ng/mL (<0.03)
[2020-03-06] MEDS ORDERED: Ondansetron 4 mg VIAL 2 MG/ML 2 ml VIAL IV PRN (00:52)
[2020-03-06] MEDS: NS 0.9% 1000 ml BAG 1,000 ML IV SCH ×2 (03:02→16:14)
[2020-03-06 03:24] LABS: Troponin I 0.04 ng/mL (<0.03)
[2020-03-06 08:17] LABS: BUN/Creatinine Ratio 10.4 (8-20); EGFR Non-African American 84.5 (>60)
[2020-03-06 08:18] LABS: Calcium 8.2 mg/dL (8.6-10.3); EGFR African American 102.2 (>60)
[2020-03-06 08:22] LABS: Troponin I 0.03 ng/mL (<0.03)
[2020-03-06] MEDS: Aspirin EC 81 mg TAB.EC (enteric coated) PO SCH (08:40)
[2020-03-06] MEDS: PANTOPRAZOLE 20 MG PO SCH (08:45)
[2020-03-06] MEDS ORDERED: CMCS: Rosuvastatin 5 mg TAB (NF) PO SCH (18:00)
[2020-03-07] MEDS: NS 0.9% 1000 ml BAG 1,000 ML IV SCH (02:52)
[2020-03-07] MEDS: Aspirin EC 81 mg TAB.EC (enteric coated) PO SCH (10:25)
[2020-03-07] MEDS: PANTOPRAZOLE 20 MG PO SCH (10:28)
[2020-03-07 11:24] VITALS: BP 129/50
[2020-03-11] MEDS ORDERED: Etanercept SYR (NF) 50 MG/ML 0.98 ML SUBCUT SCH (00:13)
== END 2020-03-07 14:29 | disposition home or self-care (01) ==
LOC: ED 16:11 → MEDTELE 16:11
PROVIDERS: ADMIT Nurse Practitioner Adult Health; ATTEND Hospitalist

== ENCOUNTER 2020-07-07 12:52 | Inpatient (IN) ==
[~2020-07-07 12:52] MED LIST: Buffered Lidocaine 1% SYRIN 1 ml INTRADERM ONE; Dexamethasone IV 4 MG/ML VIAL 1 ml VIAL ONE; Lactated Ringers 1000 ml BAG 1,000 ML IV SCH; Lidocaine 2% PF 5 ML VIAL ONE; ROPIVACAINE 5 MG/ML 30 ML BTL (0.5%) ONE
[2020-07-07] MEDS ORDERED: Clindamycin 900 MG/D5W BAG 900 MG/50 ML BAG IVPB ONE (13:40)
[2020-07-07] MEDS ORDERED: fentaNYL 100 mcg/2 ml 50 MCG/ML VIAL ONE ×2 (13:51→18:12)
[2020-07-07] MEDS ORDERED: ROPIVACAINE 5 MG/ML 30 ML BTL (0.5%) ONE (14:39)
[2020-07-07] MEDS ORDERED: DiMENhydriNATE IV 50 mg/ml 1 ml VIAL IV PUSH PRN (16:00)
[2020-07-07] MEDS ORDERED: Naloxone 0.4 mg VIAL 0.4 mg/ml 1 ml VIAL IV PRN (16:00)
[2020-07-07] MEDS ORDERED: HYDROmorphone 1 MG/1 ML SYRINGE ONE (17:56)
[2020-07-07] MEDS ORDERED: Ondansetron ODT 4 mg TAB 4 MG TAB PO PRN (17:57)
[2020-07-07] MEDS ORDERED: diPHENhydraMINE 25 mg TAB PO PRN (17:57)
[2020-07-07] MEDS ORDERED: Morphine 2 MG/ML SYRINGE IV PRN (17:57)
[2020-07-07] MEDS ORDERED: diPHENhydraMINE IV 50 MG/ML 1 ml VIAL (BENADRYL) IV PRN (17:57)
[2020-07-07] MEDS ORDERED: oxyCODONE/Acetamin 5/325 mg TAB PO PRN (17:57)
[2020-07-07] MEDS ORDERED: Magnesium Hydroxide LIQ 30 ML UDC PO PRN (17:57)
[2020-07-07] MEDS ORDERED: Fluticasone NASAL SPRAY 50MCG 16 gm SPRAY BTL BOTH NARES PRN (18:06)
[2020-07-07] MEDS ORDERED: Levalbuterol HFA INHALER MDI INH PRN (18:06)
[2020-07-07] MEDS: fentaNYL 100 mcg/2 ml 50 MCG/ML VIAL IV PRN ×3 (18:14→18:27)
[2020-07-07] MEDS: Lactated Ringers 1000 ml BAG 1,000 ML IV SCH (20:02)
[2020-07-07] MEDS: Magnesium Hydroxide LIQ 30 ML UDC PO SCH (22:43)
[2020-07-07] MEDS: oxyCODONE/Acetamin 5/325 mg TAB PO PRN (22:43)
[2020-07-07] MEDS: Clindamycin 600 MG/D5W BAG 600 MG/50 ML BAG IV SCH (22:47)
[2020-07-08] MEDS: oxyCODONE/Acetamin 5/325 mg TAB PO PRN ×3 (04:21→23:09)
[2020-07-08] MEDS: Lactulose 30 ml UDC PO PRN (05:23)
[2020-07-08 06:10] LABS: Hematocrit 34 % (35-47); Hemoglobin 11.9 g/dL (12.0-16.0); Mean Platelet Volume 6.4 fL (7.4-10.4); Platelet Count 356 10^3/uL (150-450)
[2020-07-08 06:25] LABS: Calcium 9.4 mg/dL (8.6-10.3); Magnesium 1.7 mg/dL (1.9-2.7); Potassium 4.1 mmol/L (3.5-5.0)
[2020-07-08 06:30] LABS: BUN/Creatinine Ratio 17.6 (8-20); EGFR African American 100.2 (>60); EGFR Non-African American 82.8 (>60)
[2020-07-08] MEDS: Lactated Ringers 1000 ml BAG 1,000 ML IV SCH (06:59)
[2020-07-08] MEDS ORDERED: Magnesium Sulfate 2 gm BAG 2 GM/50 ML BAG IVPB ONE (07:30)
[2020-07-08] MEDS: Ondansetron 4 mg VIAL 2 MG/ML 2 ml VIAL IV PRN ×2 (08:20→19:57)
[2020-07-08] MEDS: Clindamycin 600 MG/D5W BAG 600 MG/50 ML BAG IV SCH ×2 (08:34→15:21)
[2020-07-08] MEDS: Magnesium Hydroxide LIQ 30 ML UDC PO SCH ×2 (08:36→19:57)
[2020-07-08] MEDS: Vitamin THERAPEUTIC TAB PO SCH (08:37)
[2020-07-08] MEDS: Aspirin EC 81 mg TAB.EC (enteric coated) PO SCH (08:37)
[2020-07-08] MEDS ORDERED: Morphine ER 15 mg TAB ** extended release PO SCH (16:00)
[2020-07-08] MEDS: Morphine ER 15 mg TAB ** extended release PO SCH (18:01)
[2020-07-08] MEDS: POLYSACCHARIDE IRON COMPLEX 150 MG PO SCH (18:03)
[2020-07-09] MEDS: Morphine ER 15 mg TAB ** extended release PO SCH ×2 (06:08→17:50)
[2020-07-09 07:25] LABS: Hematocrit 33 % (35-47); Hemoglobin 11.3 g/dL (12.0-16.0); Mean Platelet Volume 6.3 fL (7.4-10.4); Platelet Count 353 10^3/uL (150-450)
[2020-07-09] MEDS: oxyCODONE/Acetamin 5/325 mg TAB PO PRN (08:01)
[2020-07-09] MEDS: Aspirin EC 81 mg TAB.EC (enteric coated) PO SCH (08:52)
[2020-07-09] MEDS: Vitamin THERAPEUTIC TAB PO SCH (08:52)
[2020-07-09] MEDS: Magnesium Hydroxide LIQ 30 ML UDC PO SCH ×2 (08:52→21:02)
[2020-07-09 10:01] LABS: Calcium 9.3 mg/dL (8.6-10.3); Magnesium 2.6 mg/dL (1.9-2.7); Potassium 4.5 mmol/L (3.5-5.0)
[2020-07-09 10:06] LABS: BUN/Creatinine Ratio 13.9 (8-20); EGFR African American 84.3 (>60); EGFR Non-African American 69.7 (>60)
[2020-07-09] MEDS ORDERED: NS 0.9% 500 ml BAG 500 ML IV SCH (11:00)
[2020-07-09] MEDS: POLYSACCHARIDE IRON COMPLEX 150 MG PO SCH (17:16)
[2020-07-10] MEDS: Morphine ER 15 mg TAB ** extended release PO SCH (06:03)
[2020-07-10 06:27] LABS: Hematocrit 29 % (35-47); Hemoglobin 9.9 g/dL (12.0-16.0); Mean Platelet Volume 6.8 fL (7.4-10.4); Platelet Count 320 10^3/uL (150-450)
[2020-07-10] MEDS: Aspirin EC 81 mg TAB.EC (enteric coated) PO SCH (09:59)
[2020-07-10] MEDS: Lactulose 30 ml UDC PO PRN (10:00)
[2020-07-10] MEDS: Vitamin THERAPEUTIC TAB PO SCH (10:02)
[2020-07-10] MEDS: Magnesium Hydroxide LIQ 30 ML UDC PO SCH (10:05)
[2020-07-10 11:26] VITALS: BP 116/61
== END 2020-07-10 13:45 | disposition home or self-care (01) | DRG 470 ==
LOC: OR 12:52 → SSU 12:52 → EDSTATUS 15:30
PROVIDERS: ADMIT Orthopaedic Surgery Adult Reconstructive Orthopaedic Surgery; ATTEND Orthopaedic Surgery Adult Reconstructive Orthopaedic Surgery

== ENCOUNTER 2022-05-26 11:30 | Observation (INO) ==
[2022-05-26 11:57] LABS: ABS Eosinophils 0.1 10^3/ul (0-0.6); ABS Lymphocytes 0.7 10^3/ul (1.0-4.8); ABS Monocytes 0.3 10^3/ul (0-0.8); ABS Neutrophils 2.2 10^3/ul (1.5-7.7); Eosinophil % 1.7 %; Hematocrit 39 % (35-47); Hemoglobin 13.4 g/dL (12.0-16.0); Lymphocyte % 21.2 %; Mean Corpuscular HGB Conc 35 g/dL (31-36); Mean Corpuscular Hemoglobin 40 pg (27-31); Mean Corpuscular Volume 117 fL (80-97); Mean Platelet Volume 6.6 fL (7.4-10.4); Platelet Count 293 10^3/uL (150-450); Red Blood Count 3.33 10^6 /uL (3.70-4.87); Red Cell Distribution Width 14 % (10-15); White Blood Count 3.3 10^3/uL (3.5-10.8)
[2022-05-26 12:01] LABS: INR 0.99 (0.89-1.11)
[2022-05-26 12:39] LABS: Albumin 4.5 g/dL (3.2-5.2); Albumin/Globulin Ratio 1.7 (1-3); Calcium 9.9 mg/dL (8.6-10.3); Globulin 2.6 g/dL (2-4); Potassium 4.1 mmol/L (3.5-5.0); Total Bilirubin 0.6 mg/dL (0.2-1.0); Total Protein 7.1 g/dL (6.4-8.9)
[2022-05-26 13:30] LABS: High Sensitivity Troponin 1 Hr 14 pg/mL (<15)
[2022-05-26] MEDS ORDERED: Fluticasone NASAL SPRAY 50MCG 16 gm SPRAY BTL BOTH NARES PRN (16:12)
[2022-05-26] MEDS ORDERED: VIBEGRON 75 MG PO SCH (21:00)
[2022-05-26] MEDS ORDERED: ICOSAPENT ETHYL 1 GM CAPSULE (NF) PO SCH (21:00)
[2022-05-26] MEDS: Heparin 5000 UNITS/ML 1 mL VIAL SUBCUT SCH (22:42)
[2022-05-27] MEDS ORDERED: ICOSAPENT ETHYL 1 GM CAPSULE (NF) PO SCH (00:37)
[2022-05-27] MEDS: Heparin 5000 UNITS/ML 1 mL VIAL SUBCUT SCH ×2 (05:23→16:21)
[2022-05-27] MEDS ORDERED: CYANOCOBALAMIN PO SCH (09:00)
[2022-05-27] MEDS ORDERED: [UNRECOGNIZED DRUG - OTHER] PO SCH (09:00)
[2022-05-27] MEDS ORDERED: FOLIC ACID PO SCH (09:00)
[2022-05-27] MEDS ORDERED: DULoxetine DR 60 mg CAP PO SCH (09:00)
[2022-05-27] MEDS ORDERED: Aspirin EC 81 mg TAB.EC (enteric coated) PO SCH (09:00)
[2022-05-27] MEDS ORDERED: Aminophylline 25 MG/ML VIAL ONE (09:06)
[2022-05-27] MEDS ORDERED: Regadenoson 0.4 MG/5 ML SYRINGE ONE (09:06)
[2022-05-27 12:44] LABS: ABS Lymphocytes 0.7 10^3/ul (1.0-4.8); ABS Monocytes 0.6 10^3/ul (0-0.8); ABS Neutrophils 2.2 10^3/ul (1.5-7.7); Eosinophil % 1.2 %; Hematocrit 39 % (35-47); Hemoglobin 13.2 g/dL (12.0-16.0); Lymphocyte % 19.6 %; Mean Corpuscular HGB Conc 34 g/dL (31-36); Mean Corpuscular Hemoglobin 39 pg (27-31); Mean Corpuscular Volume 115 fL (80-97); Mean Platelet Volume 6.7 fL (7.4-10.4); Platelet Count 273 10^3/uL (150-450); Red Cell Distribution Width 14 % (10-15); White Blood Count 3.6 10^3/uL (3.5-10.8)
[2022-05-27 13:31] LABS: Calcium 9.6 mg/dL (8.6-10.3); Magnesium 2.1 mg/dL (1.9-2.7); Potassium 4.7 mmol/L (3.5-5.0); eGFR CKD-EPI 78.9 (>60)
[2022-05-27 17:15] VITALS: BP 137/79
== END 2022-05-27 16:34 | disposition home or self-care (01) ==
LOC: ED 11:30 → EDHOLD 11:30 → MEDTELE 05-27 00:27
PROVIDERS: ADMIT Internal Medicine; ATTEND Internal Medicine

== ENCOUNTER 2022-12-22 18:18 | Observation (INO) ==
[2022-12-22] MEDS ORDERED: Morphine 2 MG/ML SYRINGE IV ONE (19:29)
[2022-12-22] MEDS ORDERED: Ondansetron 4 mg VIAL 2 MG/ML 2 ml VIAL IV ONE (19:29)
[2022-12-22] MEDS ORDERED: Lidocaine/Epineph/Tetraca GEL 3 ML GEL IN SYR TOPICAL ONE (21:17)
[2022-12-23] MEDS ORDERED: Morphine 2 MG/ML SYRINGE IV PRN ×2 (00:38→00:39)
[2022-12-23 01:00] LABS: Hematocrit 36 % (35-47); Hemoglobin 12.7 g/dL (12.0-16.0); Mean Corpuscular HGB Conc 35 g/dL (31-36); Mean Corpuscular Hemoglobin 41 pg (27-31); Mean Corpuscular Volume 116 fL (80-97); Mean Platelet Volume 6.6 fL (7.4-10.4); Platelet Count 356 10^3/uL (150-450); Red Blood Count 3.09 10^6 /uL (3.70-4.87); Red Cell Distribution Width 13 % (10-15); White Blood Count 7.3 10^3/uL (3.5-10.8)
[2022-12-23] MEDS ORDERED: Morphine 4 MG/ML VIAL (1 ml) IV ONE (01:03)
[2022-12-23 01:27] LABS: Calcium 8.9 mg/dL (8.6-10.3); Creatinine, Serum 0.76 mg/dL (0.51-0.95); Potassium 4.4 mmol/L (3.5-5.0); eGFR CKD-EPI 77.2 (>60)
[2022-12-23] MEDS: Polyethylene Glycol 3350 17 GM PACKET PO SCH ×2 (01:55→08:33)
[2022-12-23] MEDS ORDERED: VIBEGRON 75 MG PO SCH (02:00)
[2022-12-23 05:44] LABS: Rapid COVID-19 Molecular Undetected (Undetected)
[2022-12-23 11:47] VITALS: BP 127/55
== END 2022-12-23 13:45 | disposition home or self-care (01) ==
LOC: EDHOLD 18:18 → ED 18:18 → SUATTDRO 23:46 → MEDTELE 12-23 06:17
PROVIDERS: ADMIT Internal Medicine; ATTEND Hospitalist